=== PATIENT | male | born 1990 | race Caucasian/White ===

== ENCOUNTER 2017-07-07 17:12 | Inpatient (IN) ==
[2017-07-07] MEDS ORDERED: Isovue-370 500 ML INFUS..BTL IV ONE (17:26)
--- NOTE | 2017-07-07 17:29 | Emergency Department Note ---
Disposition Clinical Impression: Neuropraxia of right upper extremity, Retropharyngeal abscess, Myositis Disposition: Admitted As Inpatient Condition: Fair General Adult HPI - General Chief complaint: ED Neuro Symptoms/Deficit Stated complaint: neck pain into R arm Time Seen by Provider: 07/07/17 17:20 Source: family - History of Present Illness Pain Scale: 7 - Related Data Home Medications Medication Instructions Recorded Confirmed No Known Home Drugs 01/12/17 01/12/17 Allergies Allergy/AdvReac Type Severity Reaction Status Date / Time No Known Allergies Allergy Verified 08/01/16 10:45 Past Medical History - Past Medical History Medical history: Reports: no medical history Surgical history: Reports: no surgical history Psychiatric history: Reports: no psych history - Social History Smoking Status: Never smoker Smokeless Tobacco Status: No Alcohol use: Reports: occasionally, recent Drug use: Reports: cocaine, opiates, prescription drug abuse Physical Exam - General General appearance: alert Course Vital Signs Temperature 98.4 F 07/07/17 17:16 Pulse Rate 85 07/07/17 17:16 Respiratory Rate 16 07/07/17 17:16 Blood Pressure 145/94 07/07/17 17:16 O2 Sat by Pulse Oximetry 97 07/07/17 17:16 Temperature 98.8 F 07/08/17 04:22 Pulse Rate 67 07/08/17 04:22 Respiratory Rate 16 07/08/17 04:22 Blood Pressure 147/80 07/08/17 04:22 O2 Sat by Pulse Oximetry 98 07/08/17 04:22 Oxygen Delivery Oxygen Delivery Room Air Medical Decision Making - Lab Data Result diagrams: 07/08/17 01:48 07/08/17 01:48 Lab Results 07/07/17 07/07/17 07/07/17 Range/Units 17:35 17:35 17:35 WBC 11.4 H (4.3-11.1) K/mcL RBC 4.91 (4.19-5.50) M/mcL Hgb 15.1 (12.9-16.9) g/dL Hct 44.5 (37.5-50.1) % MCV 90.6 (83.0-100.0) fL MCH 30.8 (28.0-33.3) pg MCHC 33.9 (31.6-35.5) g/dL RDW 12.1 (11.5-14.5) % Plt Count 215 (140-400) K/mcL MPV 11.7 (9.4-12.4) fL Immature Gran % 0.3 (0-4) % Seg Neutrophils % 67.5 % Lymphocytes % 20.5 % Monocytes % 11.5 % Eosinophils % 0.0 % Basophils % 0.2 % Neutrophils # 7.7 (1.6-8.9) K/mcL Lymphocytes # 2.3 (0.6-4.6) K/mcL Monocytes # 1.3 (0.0-1.3) K/mcL Eosinophils # 0.0 (0.0-0.6) K/mcL Basophils # 0.0 (0.0-0.2) K/mcL ESR 11 H (0-10) mm/hr Sodium 138 (136-145) mEq/L Potassium 4.7 (3.5-5.1) mEq/L Chloride 100 (98-107) mEq/L Carbon Dioxide 30 H (23-29) mEq/L BUN 24 H (6-20) mg/dL Creatinine 1.08 (0.70-1.30) mg/dL Est GFR ( Amer) > 60 (> 60) Est GFR (Non-Af Amer) > 60 (> 60) BUN/Creatinine Ratio 22 (6-26) Glucose 102 (70-105) mg/dL Calculated Osmolality 290 (280-300) Lactic Acid (0.5-2.2) mmol/L Calcium 9.4 (8.6-10.3) mg/dL Magnesium 2.2 (1.6-2.6) mg/dL Total Bilirubin 0.7 (0.3-1.0) mg/dL AST 537 H (13-39) Units/L ALT 356 H (7-52) Units/L Alkaline Phosphatase 44 (34-104) Units/L Creatine Kinase > 78596 H (30-223) Units/L C-Reactive Protein 22 H (Less than 10) mg/L Serum Total Protein 7.7 (6.4-8.9) g/dL Albumin 4.8 (3.5-5.7) g/dL Globulin 2.9 (2.4-3.5) g/dL Albumin/Globulin Ratio 1.7 (1.1-2.2) Vitamin B12 (250-1100) pg/mL Folate (3.0-16.0) ng/mL HIV Ag/Ab Combo Qual (Nonreactive) 07/07/17 07/07/17 07/07/17 Range/Units 17:35 17:35 19:45 WBC (4.3-11.1) K/mcL RBC (4.19-5.50) M/mcL Hgb (12.9-16.9) g/dL Hct (37.5-50.1) % MCV (83.0-100.0) fL MCH (28.0-33.3) pg MCHC (31.6-35.5) g/dL RDW (11.5-14.5) % Plt Count (140-400) K/mcL MPV (9.4-12.4) fL Immature Gran % (0-4) % Seg Neutrophils % % Lymphocytes % % Monocytes % % Eosinophils % % Basophils % % Neutrophils # (1.6-8.9) K/mcL Lymphocytes # (0.6-4.6) K/mcL Monocytes # (0.0-1.3) K/mcL Eosinophils # (0.0-0.6) K/mcL Basophils # (0.0-0.2) K/mcL ESR (0-10) mm/hr Sodium (136-145) mEq/L Potassium (3.5-5.1) mEq/L Chloride (98-107) mEq/L Carbon Dioxide (23-29) mEq/L BUN (6-20) mg/dL Creatinine (0.70-1.30) mg/dL Est GFR ( Amer) (> 60) Est GFR (Non-Af Amer) (> 60) BUN/Creatinine Ratio (6-26) Glucose (70-105) mg/dL Calculated Osmolality (280-300) Lactic Acid 2.1 (0.5-2.2) mmol/L Calcium (8.6-10.3) mg/dL Magnesium (1.6-2.6) mg/dL Total Bilirubin (0.3-1.0) mg/dL AST (13-39) Units/L ALT (7-52) Units/L Alkaline Phosphatase (34-104) Units/L Creatine Kinase (30-223) Units/L C-Reactive Protein (Less than 10) mg/L Serum Total Protein (6.4-8.9) g/dL Albumin (3.5-5.7) g/dL Globulin (2.4-3.5) g/dL Albumin/Globulin Ratio (1.1-2.2) Vitamin B12 533 (250-1100) pg/mL Folate 14.5 (3.0-16.0) ng/mL HIV Ag/Ab Combo Qual Nonreactive (Nonreactive) Attestation Statement - Attestation Attestation: I examined this patient and my medical decision-making was reviewed with the Resident Physician. I agree with the documented findings, disposition and treatment plan as described except to the extent set forth below. [id number] time provided Patient arrives in the care of his mother. He complains of right upper extremity numbness and weakness that he noticed at approximately 7 AM upon awakening. Symptoms have been present for 10+ hours. He admits to drinking alcohol last night and going to bed around midnight without symptoms. His mother also noticed some erythema and swelling to his left posterior cervical region. On exam the patient does have identifiable weakness involving his right arm. He has well demarcated erythema to his left paracervical region with palpable induration. No crepitus. CT scan of the head and cervical spine ordered. IV contrast-enhanced CT of the soft tissue neck ordered. Etiology is not completely certain although I favor neuropraxia secondary to abnormal sleeping position 18:41: Care to be endorsed to the oncoming physician at [address] scans and reevaluation. She will provide disposition
--- NOTE | 2017-07-07 17:34 | Emergency Department Note ---
Disposition Clinical Impression: Neuropraxia of right upper extremity Disposition: Still a Patient Condition: Fair Referrals: Morteza Mello MD [Primary Care Provider] - Forms: ED Satisfaction Letter General Adult HPI - General Chief complaint: ED Neuro Symptoms/Deficit Stated complaint: neck pain into R arm Time Seen by Provider: 07/07/17 17:20 Source: family Nursing Notes Reviewed: Yes Vital Signs Reviewed: Yes - History of Present Illness HPI Narrative: Mr. Stokes presents with mother bedside for evaluation of left-sided neck pain and right upper extremity weakness. He was fine last night and, after drinking 8-9 alcoholic drinks (mixed ratio of beer and hard liquor), he woke this morning between 7:30 and 8 AM with his symptoms. He describes left-sided posterior neck pain and swelling as well as right upper extremity weakness and numbness over the nape of his right neck, shoulder, and upper arm. He initially thought he may have slept funny however, his symptoms persisted and his mom became concerned about the swelling of his left posterior neck. PMH: None Habits: History of IV drug abuse. Last injection was just over 1 year ago; ejected into his bilateral forearms. ROS: Positive: As above Negative: Trauma, fever, chills, headache, changes in vision. No history of congenital cardiac abnormalities. No slurring of speech or drooping of face. No lower extremity problems. No history of easy bruising or bleeding. No dyspnea or cough. No pain with swallowing of difficulty opening his mouth or chewing. Pain Scale: 7 - Related Data Home Medications Medication Instructions Recorded Confirmed No Known Home Drugs 01/12/17 01/12/17 Allergies Allergy/AdvReac Type Severity Reaction Status Date / Time No Known Allergies Allergy Verified 08/01/16 10:45 All systems ED: reviewed and negative except as stated. Review of Systems: As Per HPI Past Medical History - Past Medical History Medical history: Reports: no medical history Surgical history: Reports: no surgical history Psychiatric history: Reports: no psych history - Social History Smoking Status: Never smoker Smokeless Tobacco Status: No Alcohol use: Reports: occasionally, recent Drug use: Reports: cocaine, opiates, prescription drug abuse Physical Exam Vital Signs Reviewed General: Patient is alert, oriented, and in no acute distress. Head: atraumatic, normocephalic Eye: normal appearance, PERRL, EOMI, no scleral icterus, no conjunctival injection ENT: mucous membranes moist, normal external ear exam Neck: normal inspection, trachea midline, full ROM Chest: normal inspection, symmetric chest rise Respiratory: Good respiratory effort. Bilateral breath sounds are clear without wheezing, crackles, or rhonchi. Cardiovascular: Regular rate and rhythm. No clicks, rubs, gallops, or murmors. Normal heart sounds. Abdomen: Bowel sounds present normoactive x-4 quadrants. Abdomen is soft, nondistended, and nontender. No guarding or rebound. No organomegaly noted. Musculoskeletal: Spontaneously moving all extremities. 2/5 strength in right shoulder abduction and flexion. 4/5 strength in right elbow flexion. 5/5 strength in right shoulder adduction and extension, right elbow extension, right wrist flexion/extension/radial & ulnar deviation, and right hand facsimile operator strength. Left UE strength 5/5 throughout. Skin: warm, dry, intact. Neuro: Alert and oriented x4. Sensation light touch and pain absent circumferentially around the right mid humerus to axillae extending over right deltoid, shoulder, nape of right neck, and extending in the distribution of the lesser occipotal nerve including the right ear. No facial asymmetry. Cranial nerves II through XII intact. No slurring of speech. Limb drift of the right upper extremity. The limb drift of bilateral lower extremity's. Ataxia in right hand finger to nose. No gait ataxia. Psych: Patient's affect is appropriate for situation. - General General appearance: alert Course Course Narrative: We will. Muscular age-appropriate individual has obvious weakness of his right upper extremity with paresthesias. Suspect his right upper extremity limb drift and finger to nose ataxia secondary to muscle weakness. Patient was not able to substantially overcome this weakness with upper. He was intoxicated last night but denies any trauma. Clinically suspect neuropraxia. Spinal epidural abscess is a possibility though slightly given his last IV drug use was just over 1 year ago. Bedside ultrasound of the erythematous swollen localized area on the nape of his left neck did not show cobblestoning or drainable fluid. Patient is signed out to the night team, Dr. Bangura and Dr. Borges. CT imaging is pending. Anticipate disposition: Pending unremarkable CT, Discharge home with neurology follow-up. Vital Signs Temperature 98.4 F 07/07/17 17:16 Pulse Rate 85 07/07/17 17:16 Respiratory Rate 16 07/07/17 17:16 Blood Pressure 145/94 07/07/17 17:16 O2 Sat by Pulse Oximetry 97 07/07/17 17:16 Temperature 98.4 F 07/07/17 17:16 Pulse Rate 78 07/07/17 18:46 Respiratory Rate 16 07/07/17 18:46 Blood Pressure 131/84 07/07/17 18:46 O2 Sat by Pulse Oximetry 94 07/07/17 18:46 Oxygen Delivery Oxygen Delivery Room Air
[2017-07-07 19:23] LABS: Basophils % 0.2 %; Hematocrit 44.5 % (37.5-50.1); Hemoglobin 15.1 g/dL (12.9-16.9); Immature Granulocytes % 0.3 % (0-4); Lymphocytes # 2.3 K/mcL (0.6-4.6); Lymphocytes % 20.5 %; Mean Corpuscular HGB Conc 33.9 g/dL (31.6-35.5); Mean Corpuscular Hemoglobin 30.8 pg (28.0-33.3); Mean Corpuscular Volume 90.6 fL (83.0-100.0); Mean Platelet Volume 11.7 fL (9.4-12.4); Monocytes # 1.3 K/mcL (0.0-1.3); Monocytes % 11.5 %; Neutrophils # 7.7 K/mcL (1.6-8.9); Platelet Count 215 K/mcL (140-400); Red Blood Count 4.91 M/mcL (4.19-5.50); Red Cell Distribution Width 12.1 % (11.5-14.5); Segmented Neutrophils % 67.5 %
--- NOTE | 2017-07-07 19:27 | Emergency Department Note ---
Disposition Clinical Impression: Retropharyngeal abscess Neuropraxia of right upper extremity Qualifiers: Encounter type: initial encounter Qualified Code(s): S44.91XA - Injury of unspecified nerve at shoulder and upper arm level, right arm, initial encounter Myositis Qualifiers: Myositis type: unspecified type Myositis location: upper extremity Laterality: unspecified laterality Qualified Code(s): M60.829 - Other myositis, unspecified upper arm Disposition: Admitted As Inpatient Condition: Fair Time of Disposition: 23:00 Neuro HPI - General Chief Complaint: ED Neuro Symptoms/Deficit Stated Complaint: neck pain into R arm Time Seen by Provider: 07/07/17 17:20 Source: family Nursing Notes Reviewed: Yes Vital Signs Reviewed: Yes - Related Data Home Medications: Home Medications Medication Instructions Recorded Confirmed No Known Home Drugs 01/12/17 01/12/17 Allergies/Adverse Reactions: Allergies Allergy/AdvReac Type Severity Reaction Status Date / Time No Known Allergies Allergy Verified 08/01/16 10:45 Past Medical History - Past Medical History Medical history: Reports: no medical history Surgical history: Reports: no surgical history Psychiatric history: Reports: no psych history - Social History Smoking Status: Never smoker Smokeless Tobacco Status: No Alcohol use: Reports: occasionally, recent Drug use: Reports: cocaine, opiates, prescription drug abuse Physical Exam - General General appearance: alert Course Course Narrative: Assumed care from day shift Dr. Ruiz. Please see his documentation. Briefly , this is a 27-year-old male who resents to [facility] ED with chief complaint of right-sided arm weakness, numbness over the right upper arm that extends into the neck and face. He appears somewhat drowsy and does awaken to verbal stimulation. States he just does not feel good. Does admit to heavy alcohol use tonight before and does not remember anything about what happened. States he left the bar by himself and woke up this morning with the symptoms. He has on physical exam some decreased sensation over the distribution of the deltoid region that extends up into the neck. Initially denied any drug use but then states he thinks he may have started some heroin. CT of the head, cervical spine, soft tissue neck was ordered. We will follow up on results. - Reevaluation(s) Reevaluation #1: CT scan results show a developing abscess in the trapezius muscle causing a myositis. We will go ahead and get an MRI with and without contrast. We will start septic workup with lab work, blood cultures, we will give a IV fluid bolus and cover with IV vancomycin. Time: 19:37 Reevaluation #2: MRI showed "Severe myositis involving left trapezius and left-sided posterior paraspinal musculature from suboccipital area through C6-7 without drainable fluid collection identified. No epidural abscess. No evidence of osteomyelitis. There is a trace retropharyngeal abscess extending from C2 through C4-5, 6.0 cm craniocaudal by 5 mm in thickness." I discussed these findings with the hospitalist Dr. Roger who would like us to discuss with ENT. I spoke with ENT Dr. Bedoya who recommends clindamycin in addition to vancomycin. Also recommends Decadron 10 mg every 8 hours. First dose of this was ordered here. He does not feel this needs to be emergently drained. He will see the patient in consultation tomorrow. I discussed with hospitalist again who has accepted patient for admission. Time: 23:00 Vital Signs Temperature 98.4 F 07/07/17 17:16 Pulse Rate 85 07/07/17 17:16 Respiratory Rate 16 07/07/17 17:16 Blood Pressure 145/94 07/07/17 17:16 O2 Sat by Pulse Oximetry 97 07/07/17 17:16 Temperature 98.9 F 07/08/17 01:01 Pulse Rate 71 07/08/17 01:01 Respiratory Rate 15 07/08/17 01:01 Blood Pressure 147/88 07/08/17 01:01 O2 Sat by Pulse Oximetry 95 07/08/17 01:01 Oxygen Delivery Oxygen Delivery Room Air Neuro Symptoms/Deficit - Medical Records Medical records reviewed: Yes I reviewed the patient's medical records. - Lab Data Lab results reviewed: Yes I reviewed the patient's lab results. Result diagrams: 07/08/17 01:48 07/08/17 01:48 Lab Results 07/07/17 07/07/17 07/07/17 Range/Units 17:35 17:35 17:35 WBC 11.4 H (4.3-11.1) K/mcL RBC 4.91 (4.19-5.50) M/mcL Hgb 15.1 (12.9-16.9) g/dL Hct 44.5 (37.5-50.1) % MCV 90.6 (83.0-100.0) fL MCH 30.8 (28.0-33.3) pg MCHC 33.9 (31.6-35.5) g/dL RDW 12.1 (11.5-14.5) % Plt Count 215 (140-400) K/mcL MPV 11.7 (9.4-12.4) fL Immature Gran % 0.3 (0-4) % Seg Neutrophils % 67.5 % Lymphocytes % 20.5 % Monocytes % 11.5 % Eosinophils % 0.0 % Basophils % 0.2 % Neutrophils # 7.7 (1.6-8.9) K/mcL Lymphocytes # 2.3 (0.6-4.6) K/mcL Monocytes # 1.3 (0.0-1.3) K/mcL Eosinophils # 0.0 (0.0-0.6) K/mcL Basophils # 0.0 (0.0-0.2) K/mcL ESR 11 H (0-10) mm/hr Sodium 138 (136-145) mEq/L Potassium 4.7 (3.5-5.1) mEq/L Chloride 100 (98-107) mEq/L Carbon Dioxide 30 H (23-29) mEq/L BUN 24 H (6-20) mg/dL Creatinine 1.08 (0.70-1.30) mg/dL Est GFR ( Amer) > 60 (> 60) Est GFR (Non-Af Amer) > 60 (> 60) BUN/Creatinine Ratio 22 (6-26) Glucose 102 (70-105) mg/dL Calculated Osmolality 290 (280-300) Lactic Acid (0.5-2.2) mmol/L Calcium 9.4 (8.6-10.3) mg/dL Magnesium 2.2 (1.6-2.6) mg/dL Total Bilirubin 0.7 (0.3-1.0) mg/dL AST 537 H (13-39) Units/L ALT 356 H (7-52) Units/L Alkaline Phosphatase 44 (34-104) Units/L Creatine Kinase > 22827 H (30-223) Units/L C-Reactive Protein 22 H (Less than 10) mg/L Serum Total Protein 7.7 (6.4-8.9) g/dL Albumin 4.8 (3.5-5.7) g/dL Globulin 2.9 (2.4-3.5) g/dL Albumin/Globulin Ratio 1.7 (1.1-2.2) Vitamin B12 (250-1100) pg/mL Folate (3.0-16.0) ng/mL HIV Ag/Ab Combo Qual (Nonreactive) 07/07/17 07/07/17 07/07/17 Range/Units 17:35 17:35 19:45 WBC (4.3-11.1) K/mcL RBC (4.19-5.50) M/mcL Hgb (12.9-16.9) g/dL Hct (37.5-50.1) % MCV (83.0-100.0) fL MCH (28.0-33.3) pg MCHC (31.6-35.5) g/dL RDW (11.5-14.5) % Plt Count (140-400) K/mcL MPV (9.4-12.4) fL Immature Gran % (0-4) % Seg Neutrophils % % Lymphocytes % % Monocytes % % Eosinophils % % Basophils % % Neutrophils # (1.6-8.9) K/mcL Lymphocytes # (0.6-4.6) K/mcL Monocytes # (0.0-1.3) K/mcL Eosinophils # (0.0-0.6) K/mcL Basophils # (0.0-0.2) K/mcL ESR (0-10) mm/hr Sodium (136-145) mEq/L Potassium (3.5-5.1) mEq/L Chloride (98-107) mEq/L Carbon Dioxide (23-29) mEq/L BUN (6-20) mg/dL Creatinine (0.70-1.30) mg/dL Est GFR ( Amer) (> 60) Est GFR (Non-Af Amer) (> 60) BUN/Creatinine Ratio (6-26) Glucose (70-105) mg/dL Calculated Osmolality (280-300) Lactic Acid 2.1 (0.5-2.2) mmol/L Calcium (8.6-10.3) mg/dL Magnesium (1.6-2.6) mg/dL Total Bilirubin (0.3-1.0) mg/dL AST (13-39) Units/L ALT (7-52) Units/L Alkaline Phosphatase (34-104) Units/L Creatine Kinase (30-223) Units/L C-Reactive Protein (Less than 10) mg/L Serum Total Protein (6.4-8.9) g/dL Albumin (3.5-5.7) g/dL Globulin (2.4-3.5) g/dL Albumin/Globulin Ratio (1.1-2.2) Vitamin B12 533 (250-1100) pg/mL Folate 14.5 (3.0-16.0) ng/mL HIV Ag/Ab Combo Qual Nonreactive (Nonreactive) - Radiology Data Radiology results reviewed: Yes I reviewed the patient's radiology results. Cervical Spine CT 07/07/17 17:26 IMPRESSION: No acute abnormality of the cervical spine. D/ / Fransico Aguirre MD / Fransico Aguirre MD Interpreting Provider: Fransico Aguirre MD Head CT 07/07/17 17:26 IMPRESSION: No acute intracranial abnormality. D/ / King Barrientos MD / King Barrientos MD Interpreting Provider: King Barrientos MD Soft Tissue Neck CT 07/07/17 17:26 IMPRESSION: Posterior neck myositis with possible developing intramuscular abscess. D/ / Lloyd aBltazar MD / Lloyd Baltazar MD Interpreting Provider: Lloyd Baltazar MD Cervical Spine CT 07/07/17 17:26 IMPRESSION: No acute abnormality of the cervical spine. D/ / Fransico Aguirre MD / Fransico Aguirre MD Interpreting Provider: Fransico Aguirre MD Head CT 07/07/17 17:26 IMPRESSION: No acute intracranial abnormality. D/ / King Barrientos MD / King Barrientos MD Interpreting Provider: King Barrientos MD Soft Tissue Neck CT 07/07/17 17:26 IMPRESSION: Posterior neck myositis with possible developing intramuscular abscess. D/ / Lloyd Baltazar MD / Lloyd Baltazar MD Interpreting Provider: Lloyd Baltazar MD Chest X-Ray 07/07/17 19:22 IMPRESSION: 1. Elevation of the right hemidiaphragm with right lower lobe atelectasis. No identifiable cause. 2. Mild enlargement of the cardiac silhouette which may be due to intrinsic enlargement of the heart or pericardial fluid. D/ / Osmel Infante MD / Osmel Infante MD Interpreting Provider: Osmel Infante MD Cervical Spine MRI 07/07/17 19:28 IMPRESSION: Severe myositis involving left trapezius and left-sided posterior paraspinal musculature from suboccipital area through C6-7 without drainable fluid collection identified. No epidural abscess. No evidence of osteomyelitis. There is a trace retropharyngeal abscess extending from C2 through C4-5, 6.0 cm craniocaudal by 5 mm in thickness. D/ / John Kirkland MD / John Kirkland MD Interpreting Provider: John Kirkland MD Checklist - LKW: 3-4.5 hrs Add. Warnings/Precautions Patient/family understanding: The patient/family members have been counseled and understood the risk, benefit , and alternatives of treatment.
[2017-07-07] MEDS ORDERED: 0.9 % Sodium Chloride 1,000 ML IVC ONE (19:30)
--- NOTE | 2017-07-07 19:37 | Emergency Department Note ---
Disposition Clinical Impression: Neuropraxia of right upper extremity Disposition: Still a Patient Condition: Fair General Adult HPI - General Chief complaint: ED Neuro Symptoms/Deficit Stated complaint: neck pain into R arm Time Seen by Provider: 07/07/17 17:20 Source: family - History of Present Illness Pain Scale: 7 - Related Data Home Medications Medication Instructions Recorded Confirmed No Known Home Drugs 01/12/17 01/12/17 Allergies Allergy/AdvReac Type Severity Reaction Status Date / Time No Known Allergies Allergy Verified 08/01/16 10:45 Past Medical History - Past Medical History Medical history: Reports: no medical history Surgical history: Reports: no surgical history Psychiatric history: Reports: no psych history - Social History Smoking Status: Never smoker Smokeless Tobacco Status: No Alcohol use: Reports: occasionally, recent Drug use: Reports: cocaine, opiates, prescription drug abuse Physical Exam - General General appearance: alert Course Vital Signs Temperature 98.4 F 07/07/17 17:16 Pulse Rate 85 07/07/17 17:16 Respiratory Rate 16 07/07/17 17:16 Blood Pressure 145/94 07/07/17 17:16 O2 Sat by Pulse Oximetry 97 07/07/17 17:16 Temperature 98.3 F 07/07/17 20:52 Pulse Rate 78 07/07/17 23:20 Respiratory Rate 16 07/08/17 00:07 Blood Pressure 135/76 07/08/17 00:07 O2 Sat by Pulse Oximetry 98 07/07/17 23:20 Oxygen Delivery Oxygen Delivery Room Air Medical Decision Making - Lab Data Result diagrams: 07/07/17 17:35 07/07/17 17:35 Lab Results 07/07/17 07/07/17 07/07/17 Range/Units 17:35 17:35 17:35 WBC 11.4 H (4.3-11.1) K/mcL RBC 4.91 (4.19-5.50) M/mcL Hgb 15.1 (12.9-16.9) g/dL Hct 44.5 (37.5-50.1) % MCV 90.6 (83.0-100.0) fL MCH 30.8 (28.0-33.3) pg MCHC 33.9 (31.6-35.5) g/dL RDW 12.1 (11.5-14.5) % Plt Count 215 (140-400) K/mcL MPV 11.7 (9.4-12.4) fL Immature Gran % 0.3 (0-4) % Seg Neutrophils % 67.5 % Lymphocytes % 20.5 % Monocytes % 11.5 % Eosinophils % 0.0 % Basophils % 0.2 % Neutrophils # 7.7 (1.6-8.9) K/mcL Lymphocytes # 2.3 (0.6-4.6) K/mcL Monocytes # 1.3 (0.0-1.3) K/mcL Eosinophils # 0.0 (0.0-0.6) K/mcL Basophils # 0.0 (0.0-0.2) K/mcL ESR 11 H (0-10) mm/hr Sodium 138 (136-145) mEq/L Potassium 4.7 (3.5-5.1) mEq/L Chloride 100 (98-107) mEq/L Carbon Dioxide 30 H (23-29) mEq/L BUN 24 H (6-20) mg/dL Creatinine 1.08 (0.70-1.30) mg/dL Est GFR ( Amer) > 60 (> 60) Est GFR (Non-Af Amer) > 60 (> 60) BUN/Creatinine Ratio 22 (6-26) Glucose 102 (70-105) mg/dL Calculated Osmolality 290 (280-300) Lactic Acid (0.5-2.2) mmol/L Calcium 9.4 (8.6-10.3) mg/dL Total Bilirubin 0.7 (0.3-1.0) mg/dL AST 537 H (13-39) Units/L ALT 356 H (7-52) Units/L Alkaline Phosphatase 44 (34-104) Units/L Creatine Kinase > 66883 H (30-223) Units/L C-Reactive Protein 22 H (Less than 10) mg/L Serum Total Protein 7.7 (6.4-8.9) g/dL Albumin 4.8 (3.5-5.7) g/dL Globulin 2.9 (2.4-3.5) g/dL Albumin/Globulin Ratio 1.7 (1.1-2.2) Vitamin B12 (250-1100) pg/mL Folate (3.0-16.0) ng/mL 07/07/17 07/07/17 Range/Units 17:35 19:45 WBC (4.3-11.1) K/mcL RBC (4.19-5.50) M/mcL Hgb (12.9-16.9) g/dL Hct (37.5-50.1) % MCV (83.0-100.0) fL MCH (28.0-33.3) pg MCHC (31.6-35.5) g/dL RDW (11.5-14.5) % Plt Count (140-400) K/mcL MPV (9.4-12.4) fL Immature Gran % (0-4) % Seg Neutrophils % % Lymphocytes % % Monocytes % % Eosinophils % % Basophils % % Neutrophils # (1.6-8.9) K/mcL Lymphocytes # (0.6-4.6) K/mcL Monocytes # (0.0-1.3) K/mcL Eosinophils # (0.0-0.6) K/mcL Basophils # (0.0-0.2) K/mcL ESR (0-10) mm/hr Sodium (136-145) mEq/L Potassium (3.5-5.1) mEq/L Chloride (98-107) mEq/L Carbon Dioxide (23-29) mEq/L BUN (6-20) mg/dL Creatinine (0.70-1.30) mg/dL Est GFR ( Amer) (> 60) Est GFR (Non-Af Amer) (> 60) BUN/Creatinine Ratio (6-26) Glucose (70-105) mg/dL Calculated Osmolality (280-300) Lactic Acid 2.1 (0.5-2.2) mmol/L Calcium (8.6-10.3) mg/dL Total Bilirubin (0.3-1.0) mg/dL AST (13-39) Units/L ALT (7-52) Units/L Alkaline Phosphatase (34-104) Units/L Creatine Kinase (30-223) Units/L C-Reactive Protein (Less than 10) mg/L Serum Total Protein (6.4-8.9) g/dL Albumin (3.5-5.7) g/dL Globulin (2.4-3.5) g/dL Albumin/Globulin Ratio (1.1-2.2) Vitamin B12 533 (250-1100) pg/mL Folate 14.5 (3.0-16.0) ng/mL Critical Care Time Critical Care Time: Yes Total Critical Care Time: 35 Attestation: Critical care performed: Time is exclusive of separately billable procedures. Time includes: direct patient care, patient reassessment, coordination of patient care, interpretation of data (laboratory data, radiology data, and respiratory data), review of patient's medical records, medical consultation and documentation of patient care. Procedures included in critical care time: Procedures excluded from critical care time: Attestation Statement - Attestation Attestation: I examined this patient and my medical decision-making was reviewed with the Resident Physician. I agree with the documented findings, disposition and treatment plan as described except to the extent set forth below. Patient signed out pending CT scans. Patient's CT scan shows myositis developing abscess in his trapezius. Concern with the weakness in the right arm that this could have extension to his spinal cord. We will check an MRI. Starting septic workup. IV antibiotics. At this point the patient's disposition is admission versus transfer. Patient with no definite abscess on MRI. He does have a small retropharyngeal abscess. Discussing with ENT at this time. Antibiotics ordered. Admitted to the hospitalist. Cervical Spine CT 07/07/17 17:26 IMPRESSION: No acute abnormality of the cervical spine. D/ / Fransico Aguirre MD / Fransico Aguirre MD Interpreting Provider: Fransico Aguirre MD Head CT 07/07/17 17:26 IMPRESSION: No acute intracranial abnormality. D/ / King Barrientos MD / King Barrientos MD Interpreting Provider: King Barrientos MD Soft Tissue Neck CT 07/07/17 17:26 IMPRESSION: Posterior neck myositis with possible developing intramuscular abscess. D/ / Lloyd Baltazar MD / Lloyd Baltazar MD Interpreting Provider: Lloyd Baltazar MD Chest X-Ray 07/07/17 19:22 IMPRESSION: 1. Elevation of the right hemidiaphragm with right lower lobe atelectasis. No identifiable cause. 2. Mild enlargement of the cardiac silhouette which may be due to intrinsic enlargement of the heart or pericardial fluid. D/ / Osmel Infante MD / Osmel Infante MD Interpreting Provider: Osmel Infante MD Cervical Spine MRI 07/07/17 19:28 IMPRESSION: Severe myositis involving left trapezius and left-sided posterior paraspinal musculature from suboccipital area through C6-7 without drainable fluid collection identified. No epidural abscess. No evidence of osteomyelitis. There is a trace retropharyngeal abscess extending from C2 through C4-5, 6.0 cm craniocaudal by 5 mm in thickness. D/ / John Kirkland MD / John Kirkland MD Interpreting Provider: John Kirkland MD
[2017-07-07 19:43] LABS: Alanine Aminotransferase 356 Units/L (7-52); Albumin 4.8 g/dL (3.5-5.7); Albumin/Globulin Ratio 1.7 (1.1-2.2); Alkaline Phosphatase 44 Units/L (34-104); Aspartate Amino Transferase 537 Units/L (13-39); BUN/Creatinine Ratio 22 (6-26); Bilirubin,Total 0.7 mg/dL (0.3-1.0); Blood Urea Nitrogen 24 mg/dL (6-20); C-Reactive Protein 22 mg/L (Less than 10); Calcium 9.4 mg/dL (8.6-10.3); Carbon Dioxide 30 mEq/L (23-29); Chloride 100 mEq/L (98-107); Globulin 2.9 g/dL (2.4-3.5); Glucose 102 mg/dL (70-105); Osmolality,Calculated 290 (280-300); Potassium 4.7 mEq/L (3.5-5.1); Sodium 138 mEq/L (136-145); Total Protein 7.7 g/dL (6.4-8.9); eGFR For African Americans > 60 (> 60); eGFR For Non-African Americans > 60 (> 60)
[2017-07-07] MEDS ORDERED: Dexamethasone 10 MG/ML VIAL IVP SCH (23:15)
[2017-07-07] MEDS ORDERED: Ketorolac 15 MG/ML VIAL IVP ONE (23:22)
[2017-07-07] MEDS ORDERED: Clindamycin 900 MG/50 ML 900 MG/50 ML IV.SOLN IVPB ONE (23:24)
[2017-07-07] MEDS ORDERED: Naloxone 0.4 MG/ML INJ IVP PRN (23:43)
--- NOTE | 2017-07-07 23:44 | Internal Med History&Physical ---
Date of Encounter: 07/08/17 Time of Encounter: 23:44 Internal Medicine - H&P: HPI Chief complaint: Weakness Admitted From: Emergency Dept Plans for Post Hospital Care: Home History of present illness: Mr. Stokes is a 27 year old male history of heroin abuse and alcohol abuse wound clinic for years but has been sober for about 5 months or so up until yesterday when he drank heavily at night. He was actually in his normal state of health yesterday up until this morning when he woke up and felt that his right upper extremity and a combination of his right face and left occipital head were numb. He also reported weakness in the right upper extremities. He denies any fever. He denies any dysarthria or blurry vision. He has a mild frontal headache. No nausea or vomiting and denies chest pain, shortness of breath, abdominal pain, urinary symptoms. He says he's snorts heroin about 3 times a week. Because of those symptoms he presented to the ED where he was hemodynamically stable. Laboratory workup showed mild leukocytosis at 11.4. AST was 537 and ALT was 356. ESR was 11 and CRP was 22. He had a CT head which was unremarkable. CT cervical spine was with no acute findings. A CTA of the neck showed posterior neck myositis with a developing intramuscular abscess. The abscess measured at 4.4 x 2.3 x 11.4. Cousin those findings the ED was worried about spinal involvement and a cervical spine MRI was done which again showed severe myositis of the left trapezius and left sided posterior paraspinal musculature with no with no fluid collection noted at this time. There was no epidural abscess that there was a trace retropharyngeal abscess extending from C2-C4-5 that was 6 cm craniocaudally by 5 mm in thickness. Past Med Surg Social Fam HX - Past Medical History Medical history: no medical history Psychiatric history: no psych history - Past Surgical History Surgical History: no surgical history - Social History Smoking Status: Never smoker Smokeless Tobacco Status: No Alcohol use: occasionally, recent Drug use: cocaine, opiates, prescription drug abuse Internal Medicine - H&P: Meds No Known Home Drugs 01/12/17 [History] 3 Allergy/AdvReac Type Severity Reaction Status Date / Time No Known Allergies Allergy Verified 08/01/16 10:45 All Systems PM: A 10-system review of systems was performed and is negative for pertinent findings except as documented above in the HPI. Review of systems: All systems reviewed are negative except for as mentioned above - Constitutional Vitals: Temp Pulse Resp BP Pulse Ox 98.3 F 78 18 136/75 98 07/07/17 20:52 07/07/17 23:20 07/07/17 23:20 07/07/17 23:20 07/07/17 23:20 Exam: GEN: NAD HEENT: AT, NC, No cyanosis, oral mucosa is moist, No JVD Lymphatics: No lymphadenoapthy Eyes: Extrocular muscles intact, anicteric CVS:RRR. S1, S2, No m/r/g RESP: CTAB ABD: Soft, NT, ND, +BS EXT: No edema, No rashes, 2+ DP NEURO: Nonfocal, CN II-XII intact, the patient's strength is about 4out of 5 in the right upper extremities and 5 out of 5 in all extremities. Decreased sensation to my light touch on the right neck, right deltoid and right arm. Psych: Cooperative, Not anxious or depressed Internal Med - H&P Results - Labs CBC & Chem 7: 07/07/17 17:35 07/07/17 17:35 - Assessment and plan (1) Retropharyngeal abscess Current Visit: Yes Status: Acute Assessment and plan: ENT consulted in ED and recommended IV decadron. Will start clindamycin and vanco. f/u on cultures. NPO. IVF. Monitor respiratory status. Currently stable. (2) Myositis Current Visit: Yes Status: Acute Assessment and plan: This is associated with decreased sensation on the right neck and into the right deltoid and right arm. He strength is about 4/5 in the right upper extremities. Possibly alcoholic myositits but doesnt completely explain the paresthesia as that has a wide range of differentials. ESR and CRP only minimally elevated. Will check CPK, B12, Folate, HIV, RPR levels. Will c/w neurology. PT/OT. Qualifiers: Myositis type: unspecified type Myositis location: upper extremity Laterality: unspecified laterality Qualified Code(s): M60.829 - Other myositis , unspecified upper arm (3) Alcohol abuse Current Visit: Yes Status: Acute Assessment and plan: Will place on CIWA. Banana bag. social consult (4) DVT prophylaxis Current Visit: Yes Status: Acute Assessment and plan: heparin SQ - Time Spent With Patient Total time spent is greater than 50% in coordination of care (as documented) at patient's floor/unit and/or counseling patient:
[2017-07-07] MEDS ORDERED: 0.9 % Sodium Chloride 1,000 ML IVC SCH (23:45)
[2017-07-07] MEDS ORDERED: *HR* LORazepam 2 MG/ML VIAL IVP PRN ×2 (23:45)
[2017-07-08 00:18] LABS: Creatine Kinase > 20000 Units/L (30-223)
[2017-07-08 00:32] LABS: Folate 14.5 ng/mL (3.0-16.0)
[2017-07-08] MEDS: Clindamycin 600 MG/50 ML 600 MG/50 ML IV.SOLN IVPB SCH ×3 (00:47→15:52)
[2017-07-08 00:58] LABS: Magnesium 2.2 mg/dL (1.6-2.6)
[2017-07-08] MEDS: Dexamethasone 10 MG/ML VIAL IVP SCH ×3 (01:06→16:24)
[2017-07-08] MEDS: Acetaminophen 325 MG TABLET PO PRN ×3 (01:13→20:26)
[2017-07-08 02:16] LABS: Basophils % 0.3 %; Eosinophils % 0.1 %; Hematocrit 43.3 % (37.5-50.1); Hemoglobin 14.8 g/dL (12.9-16.9); Immature Granulocytes % 0.1 % (0-4); Lymphocytes # 1.8 K/mcL (0.6-4.6); Mean Corpuscular HGB Conc 34.2 g/dL (31.6-35.5); Mean Corpuscular Volume 90.6 fL (83.0-100.0); Mean Platelet Volume 11.2 fL (9.4-12.4); Monocytes # 0.9 K/mcL (0.0-1.3); Monocytes % 8.4 %; Neutrophils # 8.3 K/mcL (1.6-8.9); Platelet Count 189 K/mcL (140-400); Red Blood Count 4.78 M/mcL (4.19-5.50); Red Cell Distribution Width 11.9 % (11.5-14.5); Segmented Neutrophils % 75.1 %
[2017-07-08 02:30] LABS: BUN/Creatinine Ratio 21 (6-26); Blood Urea Nitrogen 20 mg/dL (6-20); Calcium 9.1 mg/dL (8.6-10.3); Carbon Dioxide 28 mEq/L (23-29); Chloride 101 mEq/L (98-107); Glucose 114 mg/dL (70-105); Magnesium 2.2 mg/dL (1.6-2.6); Osmolality,Calculated 283 (280-300); Potassium 4.1 mEq/L (3.5-5.1); Sodium 135 mEq/L (136-145); eGFR For African Americans > 60 (> 60); eGFR For Non-African Americans > 60 (> 60)
[2017-07-08] MEDS: *HR* Heparin 5,000 UNIT/ML VIAL SQ SCH ×3 (05:58→21:52)
[2017-07-08 07:22] LABS: Alanine Aminotransferase 306 Units/L (7-52); Albumin 4.4 g/dL (3.5-5.7); Albumin/Globulin Ratio 1.7 (1.1-2.2); Alkaline Phosphatase 41 Units/L (34-104); Aspartate Amino Transferase 450 Units/L (13-39); Bilirubin,Direct 0.2 mg/dL (0.0-0.2); Bilirubin,Indirect 0.7 mg/dL (0.0-1.2); Bilirubin,Total 0.9 mg/dL (0.3-1.0); Globulin 2.6 g/dL (2.4-3.5)
[2017-07-08] MEDS ORDERED: 0.9 % Sodium Chloride 1,000 ML IVC ONE (07:42)
[2017-07-08] MEDS: 0.9 % Sodium Chloride 1,000 ML IVC SCH ×4 (09:22→20:18)
--- NOTE | 2017-07-08 09:22 | ENT - Consult Note ---
Date of Encounter: 07/08/17 Time of Encounter: 08:20 Assessment and Plan (1) Retropharyngeal abscess Current Visit: Yes Status: Acute No evidence of retropharyngeal abscess on physical examination, review of CT scan questionable area of retropharyngeal abscess. This may be an early abscess but nothing drainable. See no evidence for that. This may be area of inflammation from snorting of heroin would cover for possible early retropharyngeal abscess as you are doing with the IV vancomycin and clindamycin. Would recommend continuation 24 hours of this as well as the Decadron repeat CT scan tomorrow and if no progression then may convert to oral Augmentin. Would also apply mupirocin ointment 3 times a day to the left nape of neck abrasion/spider bite? Please reconsult if see evidence of increasing retropharyngeal abscess. Again no noted abscess drainable at this time. I will not be available if reconsult it but there will be another ENT coverage (2) Myositis Current Visit: Yes Status: Acute Patient with history of falling with use of heroin suspect contusions to the neck muscle recommend local ice intermittently for 72 hours and prednisone or Decadron 3-5 day taper may also be associated with possible spider bite and the and back therapy should cover this would watch for any progression such as subcutaneous emphysema/fasciitis/abscess. Reconsult as needed Qualifiers: Myositis type: unspecified type Myositis location: upper extremity Laterality: unspecified laterality Qualified Code(s): M60.829 - Other myositis , unspecified upper arm History of Present Illness Consult date: 07/08/17 Reason for ENT Consult: other (Questionable retropharyngeal abscess, myositis) History of present illness: 27-year-old male who has history of drug abuse and alcohol abuse who was admitted through the ER last evening with history of having been drinking alcohol and snorting heroin the evening prior, and loss consciousness and memory woke up in his bed at home with sore shoulders right and left and neck extending up to the base of skull. No fever. Denies recent IV drug abuse but has used in the past on several occasions. States that he has been trying to remain sober since January but apparently has not been totally successful. CT scan last evening read as possible early retropharyngeal abscess not drainable and cervical myositis. Patient also found to have red blotch left nape of neck inferior aspect of trapezius. No crepitus and no abscess seen on CT scan of this area. CT scan was personally reviewed today shows a phlegmon/cellulitis type picture and myositis picture left nape of neck area below the trapezius but no fluid collection. I do not appreciate a true retropharyngeal abscess although that may be an early 1. Patient denies sore throat difficulty swallowing or fevers. Past Med Surg Social Fam HX - Past Medical History Medical history: no medical history Psychiatric history: no psych history - Past Surgical History Surgical History: no surgical history - Social History Smoking Status: Never smoker Smokeless Tobacco Status: No Alcohol use: occasionally, recent Drug use: cocaine, opiates, prescription drug abuse - Family History Father Living Status: Still Living Hx Family Cardiac Disorders: Yes (HTN) Medications and Allergies No Known Home Drugs 01/12/17 [History] 3 Allergy/AdvReac Type Severity Reaction Status Date / Time No Known Allergies Allergy Verified 08/01/16 10:45 ENT Exam Initial Vital Signs Temp Pulse Resp BP Pulse Ox 98.4 F 85 16 145/94 97 07/07/17 17:16 07/07/17 17:16 07/07/17 17:16 07/07/17 17:16 07/07/17 17:16 - General physical appearance well developed, well nourished, no distress, no pain. negative: moderate distress, severe distress, moderate pain, severe pain, cachectic, obese - Eyes PERRL, normal ocular movement, icteric - ENT normal pinna, normal nares, normal mucosa, no hearing loss, no congestion, CN 2- 12 grossly intact, Other (His HEENT examination reveals normocephalic atraumatic head there is a 1 mm questionable scratch versus bites with surrounding cellulitis left nape of neck posterior to the trapezius inferior aspect measuring 4 x 3 cm no fluctuance no crepitus palpated. No fluctuance of palpation of the entire neck or floor of mouth. His nasal cavities normal oral cavity normal teeth normal tongue normal pharynx normal no fullness to the pharynx no evidence of retropharyngeal abscesses seen or palpated with bimanual palpation through the floor of mouth and oral cavity oropharynx area.). negative: decreased hearing, deviated nasal septum, nasal discharge, poor mcc, dentures, mucosal exudate, dry mucosa - Neck no masses, trachea midline, no lymphadectomy. negative: deviated trachea, diffuse goiter, limited ROM - Respiratory normal respiratory effort, clear to percussion, clear to auscultation - Abdomen Abdomen: soft, non tender, bowel sounds, no tender, no surgical scars - Integumentary no rash, no growths, no abnormal pigmentation - Neurologic CN 2-12 grossly intact, normal coordination, normal sensation - Musculoskeletal normal gait, normal posture - Psychiatric oriented to time, oriented to person, oriented to place, speech is normal, memory intact Exam Initial Vital Signs Temp Pulse Resp BP Pulse Ox 98.4 F 85 16 145/94 97 07/07/17 17:16 07/07/17 17:16 07/07/17 17:16 07/07/17 17:16 07/07/17 17:16 Results - Labs 07/08/17 01:48 07/08/17 01:48 Abnormal lab results ESR 11 mm/hr (0-10) H 07/07/17 17:35 Sodium 135 mEq/L (136-145) L 07/08/17 01:48 Glucose 114 mg/dL (70-105) H 07/08/17 01:48 AST 450 Units/L (13-39) H 07/08/17 01:48 ALT 306 Units/L (7-52) H 07/08/17 01:48 Creatine Kinase > 20039 Units/L (30-223) H 07/07/17 17:35 C-Reactive Protein 22 mg/L (Less than 10) H 07/07/17 17:35 Diabetes panel 07/08/17 Range/Units 01:48 Sodium 135 L (136-145) mEq/L Potassium 4.1 (3.5-5.1) mEq/L Chloride 101 (98-107) mEq/L Carbon Dioxide 28 (23-29) mEq/L BUN 20 (6-20) mg/dL Creatinine 0.94 (0.70-1.30) mg/dL Glucose 114 H (70-105) mg/dL Calcium 9.1 (8.6-10.3) mg/dL AST 450 H (13-39) Units/L ALT 306 H (7-52) Units/L Alkaline Phosphatase 41 (34-104) Units/L Albumin 4.4 (3.5-5.7) g/dL Calcium panel 07/08/17 Range/Units 01:48 Calcium 9.1 (8.6-10.3) mg/dL Albumin 4.4 (3.5-5.7) g/dL Pituitary panel 07/08/17 Range/Units 01:48 Sodium 135 L (136-145) mEq/L Potassium 4.1 (3.5-5.1) mEq/L Chloride 101 (98-107) mEq/L Carbon Dioxide 28 (23-29) mEq/L BUN 20 (6-20) mg/dL Creatinine 0.94 (0.70-1.30) mg/dL Glucose 114 H (70-105) mg/dL Calcium 9.1 (8.6-10.3) mg/dL Adrenal panel 07/08/17 Range/Units 01:48 Sodium 135 L (136-145) mEq/L Potassium 4.1 (3.5-5.1) mEq/L Chloride 101 (98-107) mEq/L Carbon Dioxide 28 (23-29) mEq/L BUN 20 (6-20) mg/dL Creatinine 0.94 (0.70-1.30) mg/dL Glucose 114 H (70-105) mg/dL Calcium 9.1 (8.6-10.3) mg/dL Total Bilirubin 0.9 (0.3-1.0) mg/dL AST 450 H (13-39) Units/L ALT 306 H (7-52) Units/L Alkaline Phosphatase 41 (34-104) Units/L Albumin 4.4 (3.5-5.7) g/dL All other labs normal. Consult Discharge Plan - Plan Referrals: NONE,PCP [Primary Care Provider] -
--- NOTE | 2017-07-08 10:55 | Internal Med Progress Note ---
<Rohit Dhaliwal - Last Filed: 07/08/17 10:53> Date of Encounter: 07/08/17 Time of Encounter: 08:10 - Assessment and plan (1) Retropharyngeal abscess Current Visit: Yes Status: Suspected Assessment and plan: -ENT consulted in ED and recommended IV decadron. - Per ENT, no plans for immediate intervention. Patient is having to dysphagia, odynophagia, difficulty breathing. - May be more likely irritation from snorting heroin, inflammatory response. - Recommeds continuing Abx with transition to oral augmentin if no worsening overnight. - Repeat CT scan tomorrow to assess for growth. Plan - Continue clindamycin and vanco day #2 - f/u on cultures. -NPO. IVF. Monitor respiratory status. Currently stable. (2) Myositis Current Visit: Yes Status: Acute Assessment and plan: - This is associated with decreased sensation on the right neck and into the right deltoid and right arm. - Strength intact today but decreased ROM on exam - Possibly alcoholic myositits but doesnt completely explain the paresthesia as that has a wide range of differentials. May also be related to trauma during intoxicated state, infectious. - CK >20,000. AST/ALT elevated in 3-500s. - HIV negative. - ESR and CRP only minimally elevated. - Consulted neurology. PT/OT. Plan - Aggressive fluids. Additional 1L bolus today and then 250 mL/hour - Monitor renal function - Continue supportive care. Pain well controlled at this time. Qualifiers: Myositis type: unspecified type Myositis location: shoulder Laterality: left Qualified Code(s): M60.812 - Other myositis, left shoulder (3) Alcohol abuse Current Visit: Yes Status: Acute Assessment and plan: - No symptoms of withdrawl at this time. - Continue CIWA. Banana bag. social consult (4) Transaminitis Current Visit: Yes Status: Acute Assessment and plan: - AST of 306, ALT 450 this AM which is mildly improved. - Hepatitis panel pending - HIV negative. - May be secondary to infection, muscle breakdown, alcoholic Plan - Continue supportive care - Follow up on labs. (5) DVT prophylaxis Current Visit: Yes Status: Acute Assessment and plan: heparin SQ (6) IV drug abuse Current Visit: Yes Status: Chronic Assessment and plan: Reported heroin use 2 days ago Supportive treatment, monitor for signs of withdrawl - Time Spent With Patient Total time spent is greater than 50% in coordination of care (as documented) at patient's floor/unit and/or counseling patient: 25 - 35 minutes - Subjective Interval history: Patient seen and examined at bedside this morning. He states that overall he is feeling well with only minor soreness of his shoulders, chest. States it is an aching pain which does not radiate. Has having no difficulty swallowing, breathing. Denies any symptoms of fevers, chills, nausea, vomiting. States last IVDU was heroin 2 days ago. States he is no longer a heavy drinker, last drink was last weekend and he drinks around 7 drinks when he does drink, which is about once a week. - Constitutional Vitals: Temp Pulse Resp BP Pulse Ox 97.7 F 67 16 165/82 95 07/08/17 08:22 07/08/17 04:22 07/08/17 08:22 07/08/17 08:22 07/08/17 08:22 Exam: Gen.: Vitals noted. No acute distress. AAOx3 HEENT: PERRL/EOMI, oropharynx clear, Normocephalic, atraumatic, MMM. No visible abscess, erythema, tonsillar deviation. Neck: Supple. No adenopathy. Limited ROM in extension, right rotation. Tender to palpation on trapezius. Cardiac: RRR, no murmur, +S1/S2 Pulmonary: CTA bilaterally, no wheezes, rales or rhonchi, equal chest expansion Abdomen: soft, nontender, BS noted, no guarding Skin: Area of raised erythema on left neck, non draining, small punctuate lesion. MSK: ROM as above. Muscle strength intact. Extremities: no BLE edema, nontender calf, no cyanosis or clubbing Neuro: A&Ox3, moves all extremities, no focal deficits Psych: Appropriate mood and behavior Internal Medicine: Result - Labs CBC & Chem 7: 07/08/17 01:48 07/08/17 01:48 Labs: Short CBC 07/08/17 Range/Units 01:48 WBC 11.0 (4.3-11.1) K/mcL Hgb 14.8 (12.9-16.9) g/dL Hct 43.3 (37.5-50.1) % Plt Count 189 (140-400) K/mcL Neutrophils # 8.3 (1.6-8.9) K/mcL BMP 07/08/17 01:48 Sodium 135 L Potassium 4.1 Chloride 101 Carbon Dioxide 28 BUN 20 Creatinine 0.94 Glucose 114 H Calcium 9.1 Liver Function 07/08/17 Range/Units 01:48 Total Bilirubin 0.9 (0.3-1.0) mg/dL Direct Bilirubin 0.2 (0.0-0.2) mg/dL AST 450 H (13-39) Units/L ALT 306 H (7-52) Units/L Alkaline Phosphatase 41 (34-104) Units/L Albumin 4.4 (3.5-5.7) g/dL Consult Discharge Plan - Plan Referrals: NONE,PCP [Primary Care Provider] - <Jr Malik - Last Filed: 07/08/17 15:16> Date of Encounter: 07/08/17 - Assessment and plan (1) Myositis Current Visit: Yes Status: Acute Qualifiers: Myositis type: other type Myositis location: shoulder Laterality: left Qualified Code(s): M60.812 - Other myositis, left shoulder (2) Alcohol abuse Current Visit: Yes Status: Acute (3) Retropharyngeal abscess Current Visit: Yes Status: Suspected (4) IV drug abuse Current Visit: Yes Status: Chronic (5) Transaminitis Current Visit: Yes Status: Acute (6) DVT prophylaxis Current Visit: Yes Status: Acute - Time Spent With Patient Total time spent is greater than 50% in coordination of care (as documented) at patient's floor/unit and/or counseling patient: - Constitutional Vitals: Temp Pulse Resp BP Pulse Ox 97.9 F 62 15 155/79 98 07/08/17 11:15 07/08/17 11:15 07/08/17 11:15 07/08/17 11:15 07/08/17 11:15 Internal Medicine: Result - Labs CBC & Chem 7: 07/08/17 01:48 07/08/17 01:48 Labs: Short CBC 07/08/17 Range/Units 01:48 WBC 11.0 (4.3-11.1) K/mcL Hgb 14.8 (12.9-16.9) g/dL Hct 43.3 (37.5-50.1) % Plt Count 189 (140-400) K/mcL Neutrophils # 8.3 (1.6-8.9) K/mcL BMP 07/08/17 01:48 Sodium 135 L Potassium 4.1 Chloride 101 Carbon Dioxide 28 BUN 20 Creatinine 0.94 Glucose 114 H Calcium 9.1 Liver Function 07/08/17 Range/Units 01:48 Total Bilirubin 0.9 (0.3-1.0) mg/dL Direct Bilirubin 0.2 (0.0-0.2) mg/dL AST 450 H (13-39) Units/L ALT 306 H (7-52) Units/L Alkaline Phosphatase 41 (34-104) Units/L Albumin 4.4 (3.5-5.7) g/dL Urine 07/08/17 Range/Units 10:38 Urine Color Yellow (Yellow) Urine Clarity Clear (Clear) Urine pH 7.0 (5.0-8.0) pH Units Ur Specific [place] 1.017 (1.010-1.025) Urine Protein Negative (Neg-Trace) mg/dL Urine Glucose (UA) Normal (Normal) mg/dL - Attending Attestation I examined this patient and my medical decision-making was reviewed with the Resident Physician on 07/08/17. I agree with the documented findings, disposition and treatment plan as described except to the extent set forth below. Mr Stokes is currently admitted with acute myositis and possible retropharyngeal abscess. He remains high risk at this time. Mr Stokes is having a lot of pain in his neck. No fever. No GI issues. No nausea. Exam alert. Moderate distress. Mucus membranes dry Heart reg No wheeze Area of erythema on L posterior neck Significant muscle spasm upper back and neck. I/P 1. Myositis - pt at high risk with CPK greater than 20K. Aggressive fluids, bicarb if needed. Follow renal function. Muscle relaxant and pain control. 2. Possible abscess - appreciate ENT Further diagnoses and plan as above.
[2017-07-08 11:50] LABS: Bilirubin,Urine Negative (Negative); Blood,Urine Negative (Negative); Clarity,Urine Clear (Clear); Color,Urine Yellow (Yellow); Glucose,Urine (UA) Normal (Normal); Ketones,Urine Negative (Negative); Leukocyte Esterase,Urine Negative (Negative); Nitrite,Urine Negative (Negative); Protein,Urine Negative (Neg-Trace); Specific Gravity,Urine 1.017 (1.010-1.025); Urobilinogen,Urine Normal (Normal)
[2017-07-08] MEDS ORDERED: Orphenadrine 60 MG/2 ML VIAL IVP PRN (14:30)
[2017-07-08] MEDS ORDERED: *HR* OxyCODONE Immed Rel 5 MG TABLET PO PRN (14:51)
[2017-07-08] MEDS ORDERED: diazePAM 10 MG/2 ML SYRINGE IVP PRN (14:53)
--- NOTE | 2017-07-08 15:18 | Neurology - Consult Note ---
Date of Encounter: 07/08/17 Time of Encounter: 13:16 Assessment and Plan (1) Brachial plexitis Current Visit: Yes Status: Acute Concerning this patient's symptoms so that predominantly he is having these paresthesias along with this severe myositis in the trapezius and neck paraspinal muscles which is likely related to this overall conditions and retropharyngeal abscess, Suspect that unusual findings could be related to his a snorting on the heroine. He is already been evaluated by ENT and is been on antibiotics as well as steroids. Though myositis can cause weakness and inflammation and pain but as far as sensory deficit are concern it could be related to underlying involvement of the upper brachial plexus. His weakness is not as prominent at this time. Already had a CT and MRI of the cervical spine I would also suggest getting an MRI of the brachial plexus as well. In the meantime continue on steroids and antibiotics. For brachial plexus injury treatment is usually supportive and conservative with steroids as well as physical therapy and rehabilitation. It may take several months for complete resolution providing that his myositis and other underlying conditions improve. He would probably need EMG nerve conduction studies later on as an outpatient for exact localization of the nerve damage. For numbness and paresthesias we may try symptomatic treatment with gabapentin or pregabalin as well (2) Myositis Current Visit: Yes Status: Acute Qualifiers: Myositis type: unspecified type Myositis location: shoulder Laterality: left Qualified Code(s): M60.812 - Other myositis, left shoulder (3) Retropharyngeal abscess Current Visit: Yes Status: Suspected History of Present Illness HPI: Mr. Stokes is a 27 year old male with history of heroin abuse (SNORTING) and alcohol abuse admitted with retropharyngeal abscess as well as severe myositis of the trapezius and cervical paraspinal muscles. Patient is also complaining of paresthesias in his neck lower part of the face as well as upper right extremity with mild weakness. According to the patient a day before the admission he was drinking heavily and at the same time he has is noted heroine when he woke up in the morning he felt numbness and paresthesias and weakness of his right upper extremity. He denies any fever. He denies any dysarthria or blurry vision. He has a mild frontal headache. No nausea or vomiting and denies chest pain, shortness of breath, abdominal pain, urinary symptoms. He says he's snorts heroin about 3 times a week. Because of those symptoms he presented to the ED where he was hemodynamically stable. Laboratory workup showed mild leukocytosis at 11.4. AST was 537 and ALT was 356. ESR was 11 and CRP was 22. He had a CT head which was unremarkable. CT cervical spine was with no acute findings. A CTA of the neck showed posterior neck myositis with a developing intramuscular abscess. The abscess measured at 4.4 x 2.3 x 11.4. MRI of C spine: showed severe myositis of the left trapezius and left sided posterior paraspinal musculature with no with no fluid collection no epidural abscess with retropharyngeal abscess extending from C2-C4-5 that was 6 cm craniocaudally by 5 mm in thickness. Patient denies any significant difficulty with swallowing any double vision or any difficulty with his speech Past Med Surg Social Fam HX - Past Medical History Medical history: no medical history Psychiatric history: no psych history - Past Surgical History Surgical History: no surgical history - Social History Smoking Status: Never smoker Smokeless Tobacco Status: No Alcohol use: occasionally, recent Drug use: cocaine, opiates, prescription drug abuse - Family History Father Living Status: Still Living Hx Family Cardiac Disorders: Yes (HTN) Medications and Allergies No Known Home Drugs 01/12/17 [History] 3 Allergy/AdvReac Type Severity Reaction Status Date / Time No Known Allergies Allergy Verified 08/01/16 10:45 All Systems: The remainder of the systems were reviewed and are negative Physical Examination - Vital Signs Vital Signs: Initial Vital Signs Temp Pulse Resp BP Pulse Ox 98.4 F 85 16 145/94 97 07/07/17 17:16 07/07/17 17:16 07/07/17 17:16 07/07/17 17:16 07/07/17 17:16 - Exam Exam: GENERAL: Comfortable in no acute distress HEENT: Normal LUNGS: CTA HEART: RRR, S1 S2 Audible, no murmur EXTREMITIES: No Pedal edema. DETAILED NEUROLOGICAL EXAMINATION: MENTAL STATUS: Oriented to person, place, date and situation. Memory: knows the President, Aware of recent events Recent Memory Intact Attention concentration all intact Cranial Nerve Examination: CN - II: Visual Acuity, Field of Vision Normal, Fundus examination: No disk edema, Pupils- size shape reaction to light and accommodation: All normal. CN III, IV, : External ocular movements were intact, Pupils were reactive, Nodrooping of the eyelids CN V: Sensation over the face to light touch and pinprick all normal. Corneal reflexes not tested, jaw jerk normal. CN VII: No facial asymmetry, no flattening of nasolabial folds, no difficulty in closing the eyes, no loss of forehead wrinkles, no difficulty in eye-closure, frowning raising eyebrows. CNVIII: No significant hearing loss CN IX, X: Uvula centralized not deviated, Gag reflex: Not tested CN X1: Sternocleidomastoid, trapezius, normal or evidence of any weakness. CN X11: No Dysarthria, no wasting or fibrilation f tongue muscles, no deviation, tongue muscle strength normal. Motor examination: No hypertrophy, tone was normal, power grade 0-5 Upper limbs Proximal- mild difficulty in lifting the arms above the head. 4/4 shoulder AB/ AD on right, left 5/5 Distal- No weakness in distal muscles Lower limbs On formal testing 5/5 all over Coordination: [id number] slow on riht Target pursuit normal finger tapping normal, Rapid alternating moment of wrist normal Sensory system: Superficial sensations- Touch normal. Pain- Pinprick, decrease in right upper extremity predominantly in the shoulder area up to the elbow front of the chest above the C3 line, and the part of the neck on the right as compared to the left facial sensations are intact Deep sensation normal, Joint position sense normal. Cortical sensation, Tactile discrimination, localization and extinction all normal. Deep tendon reflexes. Decrease in the right upper extremity at bicep and brachioradialis No evidence of Babinski. No sign of meningeal irritation Gait Examination: Deferred - Constitutional General appearance: comfortable Results - Laboratory Findings CBC and BMP: 07/08/17 01:48 07/08/17 01:48 Abnormal lab findings: Abnormal lab results ESR 11 mm/hr (0-10) H 07/07/17 17:35 Sodium 135 mEq/L (136-145) L 07/08/17 01:48 Glucose 114 mg/dL (70-105) H 07/08/17 01:48 AST 450 Units/L (13-39) H 07/08/17 01:48 ALT 306 Units/L (7-52) H 07/08/17 01:48 Creatine Kinase > 72809 Units/L (30-223) H 07/07/17 17:35 C-Reactive Protein 22 mg/L (Less than 10) H 07/07/17 17:35 - Diagnostic Findings Additional findings: MRI of the neck shows Severe myositis involving left trapezius and left-sided posterior paraspinal musculature from suboccipital area through C6-7 without drainable fluid collection identified. No epidural abscess. No evidence of osteomyelitis. There is a trace retropharyngeal abscess extending from C2 through C4-5, 6.0 cm craniocaudal by 5 mm in thickness. Consult Discharge Plan - Plan Referrals: NONE,PCP [Primary Care Provider] -
--- NOTE | 2017-07-08 15:22 | Event Note ---
Date of Encounter: 07/08/17 Time of Encounter: 15:16 I spoke to patient again regarding events prior to coming in. He has no memory of what happened but does not think he was outside on ground. He does not think he had a prolonged down time. He has significant muscle spasm but no abdominal pain. He does have some autonomic dysfunction with diaphoresis on his back only last night and now with his BP elevating (this may be due to alcohol withdrawal). He has an area on his back that could be consistent with a bite. I spoke to poison control/toxicology about the potential this could be a black spider bite. He has the muscle spasm, autonomic issues, pain and possible bite area. I was informed it is reasonable to include this in differential but at this time he does not need antivenom. She suggested aggressive pain control with muscle relaxants, benzos and narcotics as well as monitoring for worsening issues and autonomic problems (i.e. fluctuating BP, priapism, etc). If he worsens he will need the antivenom (which we do not have here). Poison control number: General Practitioner (quality control assistant yin): [phone] He will need tetanus shot if not had in 5 years.
[2017-07-08] MEDS ORDERED: Tdap (Boostrix) Vaccine 0.5 ML SYRINGE IM ONE (15:23)
[2017-07-08] MEDS: *HR* OxyCODONE Immed Rel 5 MG TABLET PO PRN ×2 (16:11→20:26)
[2017-07-08] MEDS: Orphenadrine 60 MG/2 ML VIAL IVP SCH (16:24)
[2017-07-08] MEDS: Thiamine (B-1) 100 MG, Folic Acid 1 MG, MVI, adult with vitamin K 10 ML in 0.9 % Sodi... IVPB SCH (18:01)
[2017-07-09] MEDS: Dexamethasone 10 MG/ML VIAL IVP SCH ×3 (00:36→16:36)
[2017-07-09] MEDS: Clindamycin 600 MG/50 ML 600 MG/50 ML IV.SOLN IVPB SCH ×3 (00:38→16:34)
[2017-07-09] MEDS: 0.9 % Sodium Chloride 1,000 ML IVC SCH ×6 (02:40→18:33)
[2017-07-09] MEDS: *HR* OxyCODONE Immed Rel 5 MG TABLET PO PRN ×4 (02:41→22:32)
[2017-07-09] MEDS: Acetaminophen 325 MG TABLET PO PRN ×2 (02:41→13:51)
[2017-07-09 02:43] LABS: Hepatitis A Antibody IgM Nonreactive (Nonreactive); Hepatitis B Core IgM Nonreactive (Nonreactive); Hepatitis B Surface Antigen Nonreactive (Nonreactive); Hepatitis C Virus Antibody Nonreactive (Nonreactive)
[2017-07-09 03:13] LABS: BUN/Creatinine Ratio 20 (6-26); Basophils % 0.1 %; Blood Urea Nitrogen 15 mg/dL (6-20); Calcium 9.1 mg/dL (8.6-10.3); Carbon Dioxide 26 mEq/L (23-29); Chloride 107 mEq/L (98-107); Glucose 131 mg/dL (70-105); Hematocrit 38.5 % (37.5-50.1); Hemoglobin 13.2 g/dL (12.9-16.9); Immature Granulocytes % 0.7 % (0-4); Immature Platelets 8.2 % (1.1-6.1); Lymphocytes % 7.8 %; Mean Corpuscular HGB Conc 34.3 g/dL (31.6-35.5); Mean Corpuscular Hemoglobin 30.8 pg (28.0-33.3); Mean Corpuscular Volume 89.7 fL (83.0-100.0); Mean Platelet Volume 11.8 fL (9.4-12.4); Monocytes # 0.8 K/mcL (0.0-1.3); Monocytes % 6.9 %; Neutrophils # 10.3 K/mcL (1.6-8.9); Osmolality,Calculated 289 (280-300); Platelet Count 175 K/mcL (140-400); Potassium 4.2 mEq/L (3.5-5.1); Red Blood Count 4.29 M/mcL (4.19-5.50); Segmented Neutrophils % 84.5 %; Sodium 138 mEq/L (136-145); eGFR For African Americans > 60 (> 60); eGFR For Non-African Americans > 60 (> 60)
[2017-07-09] MEDS: Orphenadrine 60 MG/2 ML VIAL IVP SCH ×2 (05:35→16:37)
[2017-07-09] MEDS: *HR* Heparin 5,000 UNIT/ML VIAL SQ SCH ×3 (05:36→22:23)
[2017-07-09] MEDS ORDERED: Aminoglycoside Consult 1 EACH MC ONE (12:57)
--- NOTE | 2017-07-09 13:04 | Neurology Progress Note ---
Date of Encounter: 07/09/17 Time of Encounter: 07:30 Assessment and Plan (1) Brachial plexitis Current Visit: Yes Status: Acute Overall clinically stable suggest continue in physical therapy and continue on steroids rates MRI of the brachial plexus further decision will depend on the result of MRI scan other treatment is as per ENT and primary team (2) Myositis Current Visit: Yes Status: Acute Qualifiers: Myositis type: unspecified type Myositis location: shoulder Laterality: left Qualified Code(s): M60.812 - Other myositis, left shoulder (3) Retropharyngeal abscess Current Visit: Yes Status: Suspected Subjective Interval history: Are all patient is a stable awaits MRI of the plexus on antibiotics as well as steroids Objective - Constitutional Vitals: Temp Pulse Resp BP Pulse Ox 98.1 F 67 16 148/73 96 07/09/17 11:25 07/09/17 11:25 07/09/17 11:25 07/09/17 11:25 07/09/17 11:25 - Neurological Exam Motor Examination: Present: other (No changes compared to the) Results - Laboratory Findings CBC and BMP: 07/09/17 01:59 07/09/17 01:59 Abnormal lab findings: Abnormal lab results WBC 12.2 K/mcL (4.3-11.1) H 07/09/17 01:59 Neutrophils # 10.3 K/mcL (1.6-8.9) H 07/09/17 01:59 Immature Plt Fraction 8.2 % (1.1-6.1) H 07/09/17 01:59 ESR 11 mm/hr (0-10) H 07/07/17 17:35 Glucose 131 mg/dL (70-105) H 07/09/17 01:59 AST 450 Units/L (13-39) H 07/08/17 01:48 ALT 306 Units/L (7-52) H 07/08/17 01:48 Creatine Kinase 9751 Units/L (30-223) H 07/09/17 01:59 C-Reactive Protein 22 mg/L (Less than 10) H 07/07/17 17:35 Vancomycin Trough 4 mcg/mL (5-10) L 07/09/17 06:58 Consult Discharge Plan - Plan Referrals: NONE,PCP [Non-Partnered Physician] -
[2017-07-09 15:03] LABS: Albumin 4.1 g/dL (3.5-5.7); Albumin/Globulin Ratio 1.8 (1.1-2.2); Bilirubin,Direct 0.2 mg/dL (0.0-0.2); Bilirubin,Indirect 0.4 mg/dL (0.0-1.2); Bilirubin,Total 0.6 mg/dL (0.3-1.0); Globulin 2.3 g/dL (2.4-3.5); Total Protein 6.4 g/dL (6.4-8.9)
--- NOTE | 2017-07-09 15:40 | Internal Med Progress Note ---
Date of Encounter: 07/09/17 Time of Encounter: 15:30 - Assessment and plan (1) Myositis Current Visit: Yes Status: Acute Qualifiers: Myositis type: unspecified type Myositis location: shoulder Laterality: left Qualified Code(s): M60.812 - Other myositis, left shoulder (2) Alcohol abuse Current Visit: Yes Status: Acute (3) Retropharyngeal abscess Current Visit: Yes Status: Suspected (4) IV drug abuse Current Visit: Yes Status: Chronic (5) Transaminitis Current Visit: Yes Status: Acute (6) DVT prophylaxis Current Visit: Yes Status: Acute - Time Spent With Patient Total time spent is greater than 50% in coordination of care (as documented) at patient's floor/unit and/or counseling patient: - Constitutional Vitals: Temp Pulse Resp BP Pulse Ox 98.1 F 67 16 148/73 96 07/09/17 11:25 07/09/17 11:25 07/09/17 11:25 07/09/17 11:25 07/09/17 11:25 Internal Medicine: Result - Labs CBC & Chem 7: 07/09/17 01:59 07/09/17 01:59 Labs: Short CBC 07/09/17 Range/Units 01:59 WBC 12.2 H (4.3-11.1) K/mcL Hgb 13.2 D (12.9-16.9) g/dL Hct 38.5 (37.5-50.1) % Plt Count 175 (140-400) K/mcL Neutrophils # 10.3 H (1.6-8.9) K/mcL BMP 07/09/17 01:59 Sodium 138 Potassium 4.2 Chloride 107 Carbon Dioxide 26 BUN 15 Creatinine 0.74 Glucose 131 H Calcium 9.1 Liver Function 07/09/17 Range/Units 01:59 Total Bilirubin 0.6 (0.3-1.0) mg/dL Direct Bilirubin 0.2 (0.0-0.2) mg/dL AST 272 H (13-39) Units/L ALT 242 H (7-52) Units/L Alkaline Phosphatase 37 (34-104) Units/L Albumin 4.1 (3.5-5.7) g/dL Consult Discharge Plan - Plan Referrals: NONE,PCP [Non-Partnered Physician] -
--- NOTE | 2017-07-09 15:54 | Internal Med Progress Note ---
<Jose Guadalupe Oreilly - Last Filed: 07/09/17 15:47> Date of Encounter: 07/09/17 Time of Encounter: 15:47 - Assessment and plan (1) Retropharyngeal abscess Current Visit: Yes Status: Suspected Assessment and plan: patients neck swelling has improved with IV Decadron. He is able to move his neck without any pain. This is likely irritation from snorting heroin and inflammatory process. Unlikely to be an abscess. At this point we will continue monitor patient. We have discontinued vancomycin and continue clindamycin. Cultures are negative. We have decreased Decadron 4 mg IV every 6 (2) Myositis Current Visit: Yes Status: Acute Assessment and plan: Unclear etiology of patient's myositis. Patient's creatinine kinase has decreased to 9751 We will continue IV fluids. Renal function is stable. Patient able to move all extremities Qualifiers: Myositis type: unspecified type Myositis location: shoulder Laterality: left Qualified Code(s): M60.812 - Other myositis, left shoulder (3) Alcohol abuse Current Visit: Yes Status: Acute Assessment and plan: - No symptoms of withdrawl at this time. - Continue CIWA. Banana bag. consult to job analysis manager at patients request. (4) DVT prophylaxis Current Visit: Yes Status: Acute Assessment and plan: heparin SQ (5) Transaminitis Current Visit: Yes Status: Acute Assessment and plan: trending down currently suspecting 2nd to myositis and rhabdomyolysis continue to monitor. (6) IV drug abuse Current Visit: Yes Status: Chronic Assessment and plan: patient relapsed on heroin use. He snorts it not IV drug use Supportive treatment, monitor for signs of withdrawl - Time Spent With Patient Total time spent is greater than 50% in coordination of care (as documented) at patient's floor/unit and/or counseling patient: - Subjective Interval history: Patient reports neck pain and redness has improved considerably. He is able to move his neck. he still reports right shoulder numbness and right neck numbness. He reports no reason why he rebounded and used alcohol and heroin again. 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 He reports no abnormal sexual activity. He denies homosexual activity. He denies using drugs via IV route. - Constitutional Vitals: Temp Pulse Resp BP Pulse Ox 97.6 F 88 17 134/72 96 07/09/17 15:34 07/09/17 15:34 07/09/17 15:34 07/09/17 15:34 07/09/17 15:34 - Other Additional findings: General: without distress Neck: Mild erythema at the base of the left neck. Mild swelling. Heart: Regular rate and rhythm with no murmur Lungs: Clear to auscultation bilaterally Abdomen: Soft nontender, nondistended positive bowel sounds Skin: warm and dry Extremities: Absent pedal edema, Neuro: Decreased sensation to light touch in the right shoulder and right neck region. Vascular: Pedal and radial pulses 2 out of 4 Internal Medicine: Result - Labs CBC & Chem 7: 07/09/17 01:59 07/09/17 01:59 Labs: Short CBC 07/09/17 Range/Units 01:59 WBC 12.2 H (4.3-11.1) K/mcL Hgb 13.2 D (12.9-16.9) g/dL Hct 38.5 (37.5-50.1) % Plt Count 175 (140-400) K/mcL Neutrophils # 10.3 H (1.6-8.9) K/mcL BMP 07/09/17 01:59 Sodium 138 Potassium 4.2 Chloride 107 Carbon Dioxide 26 BUN 15 Creatinine 0.74 Glucose 131 H Calcium 9.1 Liver Function 07/09/17 Range/Units 01:59 Total Bilirubin 0.6 (0.3-1.0) mg/dL Direct Bilirubin 0.2 (0.0-0.2) mg/dL AST 272 H (13-39) Units/L ALT 242 H (7-52) Units/L Alkaline Phosphatase 37 (34-104) Units/L Albumin 4.1 (3.5-5.7) g/dL Consult Discharge Plan - Plan Referrals: NONE,PCP [Non-Partnered Physician] - <Jr Malik - Last Filed: 07/09/17 18:47> Date of Encounter: 07/09/17 - Assessment and plan (1) Myositis Current Visit: Yes Status: Acute Qualifiers: Myositis type: other type Myositis location: shoulder Laterality: left Qualified Code(s): M60.812 - Other myositis, left shoulder (2) Alcohol abuse Current Visit: Yes Status: Acute (3) Retropharyngeal abscess Current Visit: Yes Status: Suspected (4) IV drug abuse Current Visit: Yes Status: Chronic (5) Transaminitis Current Visit: Yes Status: Acute (6) DVT prophylaxis Current Visit: Yes Status: Acute - Time Spent With Patient Total time spent is greater than 50% in coordination of care (as documented) at patient's floor/unit and/or counseling patient: - Constitutional Vitals: Temp Pulse Resp BP Pulse Ox 97.6 F 88 17 134/72 96 07/09/17 15:34 07/09/17 15:34 07/09/17 15:34 07/09/17 15:34 07/09/17 15:34 Internal Medicine: Result - Labs CBC & Chem 7: 07/09/17 01:59 07/09/17 01:59 Labs: Short CBC 07/09/17 Range/Units 01:59 WBC 12.2 H (4.3-11.1) K/mcL Hgb 13.2 D (12.9-16.9) g/dL Hct 38.5 (37.5-50.1) % Plt Count 175 (140-400) K/mcL Neutrophils # 10.3 H (1.6-8.9) K/mcL BMP 07/09/17 01:59 Sodium 138 Potassium 4.2 Chloride 107 Carbon Dioxide 26 BUN 15 Creatinine 0.74 Glucose 131 H Calcium 9.1 Liver Function 07/09/17 Range/Units 01:59 Total Bilirubin 0.6 (0.3-1.0) mg/dL Direct Bilirubin 0.2 (0.0-0.2) mg/dL AST 272 H (13-39) Units/L ALT 242 H (7-52) Units/L Alkaline Phosphatase 37 (34-104) Units/L Albumin 4.1 (3.5-5.7) g/dL - Attending Attestation I examined this patient and my medical decision-making was reviewed with the Resident Physician on 07/09/17. I agree with the documented findings, disposition and treatment plan as described except to the extent set forth below. Mr Stokes is currently admitted for acute myositis. He remains moderate to high risk due to potential for worsening clinical status. Mr Stokes is moving somewhat better. Still having some pain. No fever. Muscle relaxants help. Exam alert Comfortable Mucus membranes dry Heart reg No wheeze Abd soft Less muscle swelling and increased movement. IP Myositis - ? spider bite 2. Polysubstance abuse hx Further diagnoses and plan as above.
[2017-07-09] MEDS: Thiamine (B-1) 100 MG, Folic Acid 1 MG, MVI, adult with vitamin K 10 ML in 0.9 % Sodi... IVPB SCH (17:49)
[2017-07-10] MEDS: Clindamycin 600 MG/50 ML 600 MG/50 ML IV.SOLN IVPB SCH ×3 (00:02→14:29)
[2017-07-10] MEDS: Dexamethasone 10 MG/ML VIAL IVP SCH ×3 (00:03→14:30)
[2017-07-10 02:26] LABS: Basophils % 0.1 %; Hematocrit 38.3 % (37.5-50.1); Hemoglobin 13.2 g/dL (12.9-16.9); Immature Granulocytes % 0.4 % (0-4); Lymphocytes # 1.2 K/mcL (0.6-4.6); Lymphocytes % 12.2 %; Mean Corpuscular HGB Conc 34.5 g/dL (31.6-35.5); Mean Corpuscular Volume 89.9 fL (83.0-100.0); Mean Platelet Volume 11.8 fL (9.4-12.4); Monocytes # 0.7 K/mcL (0.0-1.3); Monocytes % 6.6 %; Neutrophils # 8.1 K/mcL (1.6-8.9); Platelet Count 184 K/mcL (140-400); Red Blood Count 4.26 M/mcL (4.19-5.50); Red Cell Distribution Width 12.1 % (11.5-14.5); Segmented Neutrophils % 80.7 %
[2017-07-10] MEDS: 0.9 % Sodium Chloride 1,000 ML IVC SCH ×4 (02:32→12:56)
[2017-07-10 02:45] LABS: Alanine Aminotransferase 184 Units/L (7-52); Albumin 3.8 g/dL (3.5-5.7); Albumin/Globulin Ratio 1.8 (1.1-2.2); Alkaline Phosphatase 35 Units/L (34-104); Aspartate Amino Transferase 117 Units/L (13-39); BUN/Creatinine Ratio 22 (6-26); Bilirubin,Total 0.5 mg/dL (0.3-1.0); Blood Urea Nitrogen 19 mg/dL (6-20); Calcium 8.8 mg/dL (8.6-10.3); Carbon Dioxide 25 mEq/L (23-29); Chloride 109 mEq/L (98-107); Globulin 2.1 g/dL (2.4-3.5); Glucose 115 mg/dL (70-105); Osmolality,Calculated 291 (280-300); Potassium 4.1 mEq/L (3.5-5.1); Sodium 139 mEq/L (136-145); Total Protein 5.9 g/dL (6.4-8.9); eGFR For African Americans > 60 (> 60); eGFR For Non-African Americans > 60 (> 60)
[2017-07-10] MEDS: *HR* Heparin 5,000 UNIT/ML VIAL SQ SCH ×3 (06:17→22:03)
[2017-07-10] MEDS: Orphenadrine 60 MG/2 ML VIAL IVP SCH (06:17)
--- NOTE | 2017-07-10 09:39 | Neurology Progress Note ---
Date of Encounter: 07/10/17 Time of Encounter: 07:25 Assessment and Plan (1) Brachial plexitis Current Visit: Yes Status: Acute Overall clinically stable suggest continue in physical therapy and continue on steroids , awaits MRI of the brachial plexus further decision will depend on the result of MRI scan other treatment is as per ENT and primary team Continue on the steroids and may use gabapentin or Lidoderm patches for numbness and paresthesias in the brachial plexus area for symptomatic relief (2) Myositis Current Visit: Yes Status: Acute Qualifiers: Myositis type: other type Myositis location: shoulder Laterality: left Qualified Code(s): M60.812 - Other myositis, left shoulder (3) Retropharyngeal abscess Current Visit: Yes Status: Suspected Subjective Interval history: Patient seems to be stable strength is improving in the right upper extremity still complaining of numbness and paresthesias. He had an MRI of the right brachial plexus awaiting official report overall he is a stable l Objective - Constitutional Vitals: Temp Pulse Resp BP Pulse Ox 97.6 F 40 16 131/65 95 07/10/17 06:49 07/10/17 06:49 07/10/17 06:49 07/10/17 06:49 07/10/17 06:49 - Neurological Exam Motor Examination: Present: other (No changes compared to the) Results - Laboratory Findings CBC and BMP: 07/10/17 01:42 07/10/17 01:42 Abnormal lab findings: Abnormal lab results Immature Plt Fraction 8.2 % (1.1-6.1) H 07/09/17 01:59 ESR 11 mm/hr (0-10) H 07/07/17 17:35 Chloride 109 mEq/L (98-107) H 07/10/17 01:42 Glucose 115 mg/dL (70-105) H 07/10/17 01:42 AST 117 Units/L (13-39) H 07/10/17 01:42 ALT 184 Units/L (7-52) H 07/10/17 01:42 Creatine Kinase 3332 Units/L (30-223) H 07/10/17 01:42 C-Reactive Protein 22 mg/L (Less than 10) H 07/07/17 17:35 Serum Total Protein 5.9 g/dL (6.4-8.9) L 07/10/17 01:42 Globulin 2.1 g/dL (2.4-3.5) L 07/10/17 01:42 Vancomycin Trough 4 mcg/mL (5-10) L 07/09/17 06:58 Consult Discharge Plan - Plan Referrals: NONE,PCP [Non-Partnered Physician] -
[2017-07-10] MEDS: *HR* OxyCODONE Immed Rel 5 MG TABLET PO PRN ×2 (11:53→19:41)
--- NOTE | 2017-07-10 15:16 | Internal Med Progress Note ---
<Jose Guadalupe Oreilly - Last Filed: 07/10/17 15:13> Date of Encounter: 07/10/17 Time of Encounter: 15:13 - Assessment and plan (1) Myositis Current Visit: Yes Status: Acute Assessment and plan: Unclear etiology of patient's myositis. Patient's creatinine kinase continues to trend down. We will continue IV fluids. Decrease rate. Renal function is stable. Patient able to move all extremities Qualifiers: Myositis type: other type Myositis location: shoulder Laterality: left Qualified Code(s): M60.812 - Other myositis, left shoulder (2) Retropharyngeal abscess Current Visit: Yes Status: Suspected Assessment and plan: patients neck swelling has improved with IV Decadron. He is able to move his neck without any pain. This is likely irritation from snorting heroin and inflammatory process. Unlikely to be an abscess. awaiting chest mri results continue clindamycin. If chest MRI is negative for abscess we will discontinue clindamycin. We will decreased Decadron tomorrow to 4 mg by mouth twice a day. (3) Alcohol abuse Current Visit: Yes Status: Acute Assessment and plan: - No symptoms of withdrawl at this time. - Discontinue CIWA Complete consult to video manager at patients request. (4) DVT prophylaxis Current Visit: Yes Status: Acute Assessment and plan: heparin SQ (5) Transaminitis Current Visit: Yes Status: Acute Assessment and plan: LFT Continues to trending down currently suspecting 2nd to myositis and rhabdomyolysis continue to monitor. (6) IV drug abuse Current Visit: Yes Status: Chronic Assessment and plan: patient relapsed on heroin use. He snorts it not IV drug use Supportive treatment, monitor for signs of withdrawl (7) Brachial plexitis Current Visit: Yes Status: Acute Assessment and plan: Awaiting chest MRI. - Time Spent With Patient Total time spent is greater than 50% in coordination of care (as documented) at patient's floor/unit and/or counseling patient: - Subjective Interval history: Neck pain improved. He is able to move his neck more freely. NO acute overnight events. Reports he continues to have numbness of his right neck, shoulder and arm area. - Constitutional Vitals: Temp Pulse Resp BP Pulse Ox 98.2 F 47 16 150/75 93 07/10/17 12:21 05/08/18 12:21 07/10/17 12:21 07/10/17 12:21 07/10/17 12:21 - Other Additional findings: General: without distress Neck: Mild erythema at the base of the left neck. Mild swelling improved. Heart: Regular rate and rhythm with no murmur Lungs: Clear to auscultation bilaterally Abdomen: Soft nontender, nondistended positive bowel sounds Skin: warm and dry Extremities: Absent pedal edema, Neuro: Decreased sensation to light touch in the right shoulder and right neck region. unchanged Vascular: Pedal and radial pulses 2 out of 4 Internal Medicine: Result - Labs CBC & Chem 7: 07/10/17 01:42 07/10/17 01:42 Labs: Short CBC 07/10/17 Range/Units 01:42 WBC 10.1 (4.3-11.1) K/mcL Hgb 13.2 (12.9-16.9) g/dL Hct 38.3 (37.5-50.1) % Plt Count 184 (140-400) K/mcL Neutrophils # 8.1 (1.6-8.9) K/mcL BMP 07/10/17 01:42 Sodium 139 Potassium 4.1 Chloride 109 H Carbon Dioxide 25 BUN 19 Creatinine 0.85 Glucose 115 H Calcium 8.8 Liver Function 07/10/17 Range/Units 01:42 Total Bilirubin 0.5 (0.3-1.0) mg/dL AST 117 H (13-39) Units/L ALT 184 H (7-52) Units/L Alkaline Phosphatase 35 (34-104) Units/L Albumin 3.8 (3.5-5.7) g/dL Consult Discharge Plan - Plan Referrals: NONE,PCP [Non-Partnered Physician] - <George Stark - Last Filed: 07/10/17 15:43> Date of Encounter: 07/10/17 - Assessment and plan (1) Retropharyngeal abscess Current Visit: Yes Status: Suspected (2) Myositis Current Visit: Yes Status: Acute Qualifiers: Myositis type: other type Myositis location: shoulder Laterality: left Qualified Code(s): M60.812 - Other myositis, left shoulder (3) Alcohol abuse Current Visit: Yes Status: Acute (4) DVT prophylaxis Current Visit: Yes Status: Acute (5) Transaminitis Current Visit: Yes Status: Acute (6) IV drug abuse Current Visit: Yes Status: Chronic (7) Brachial plexitis Current Visit: Yes Status: Acute - Time Spent With Patient Total time spent is greater than 50% in coordination of care (as documented) at patient's floor/unit and/or counseling patient: - Constitutional Vitals: Temp Pulse Resp BP Pulse Ox 98.2 F 47 16 150/75 93 07/10/17 12:21 07/10/17 12:21 07/10/17 12:21 07/10/17 12:21 07/10/17 12:21 Internal Medicine: Result - Labs CBC & Chem 7: 07/10/17 01:42 07/10/17 01:42 Labs: Short CBC 07/10/17 Range/Units 01:42 WBC 10.1 (4.3-11.1) K/mcL Hgb 13.2 (12.9-16.9) g/dL Hct 38.3 (37.5-50.1) % Plt Count 184 (140-400) K/mcL Neutrophils # 8.1 (1.6-8.9) K/mcL BMP 07/10/17 01:42 Sodium 139 Potassium 4.1 Chloride 109 H Carbon Dioxide 25 BUN 19 Creatinine 0.85 Glucose 115 H Calcium 8.8 Liver Function 07/10/17 Range/Units 01:42 Total Bilirubin 0.5 (0.3-1.0) mg/dL AST 117 H (13-39) Units/L ALT 184 H (7-52) Units/L Alkaline Phosphatase 35 (34-104) Units/L Albumin 3.8 (3.5-5.7) g/dL - Attending Attestation I examined this patient and my medical decision-making was reviewed with the Resident Physician on 07/10/17. I agree with the documented findings, disposition and treatment plan as described except to the extent set forth below. Seen and examined at bedside Admitted and being managed for Myositis, brachia plexitis, Elevated CK without renal dysfunction, hx of polysubstance abuse Neurology is following, ENT review from 07/08 noted-no intervention planned. Swelling has improved with hihg dose steroids. Denies new complains, reports significant improvement. Left neck exam with mild tenderness, non-specific soft tissue swelling Repeat Chest MRI (official read) based on recommendation of neurologist is pending. Plan is to continue antibiotics till official report Rest as in the resident physician's documentation
[2017-07-10] MEDS: Thiamine (B-1) 100 MG, Folic Acid 1 MG, MVI, adult with vitamin K 10 ML in 0.9 % Sodi... IVPB SCH (17:39)
[2017-07-10] MEDS: Orphenadrine 100 MG TABLET.ER PO SCH (17:39)
[2017-07-10] MEDS: Ondansetron 4 MG/2 ML VIAL IVP PRN (21:37)
[2017-07-11] MEDS: 0.9 % Sodium Chloride 1,000 ML IVC SCH ×2 (00:17→04:51)
[2017-07-11] MEDS: Clindamycin 600 MG/50 ML 600 MG/50 ML IV.SOLN IVPB SCH ×2 (00:17→09:14)
[2017-07-11] MEDS: *HR* Heparin 5,000 UNIT/ML VIAL SQ SCH (04:52)
[2017-07-11] MEDS: Orphenadrine 100 MG TABLET.ER PO SCH (04:52)
[2017-07-11 07:32] VITALS: BP 148/79
[2017-07-11] MEDS: Ondansetron 4 MG/2 ML VIAL IVP PRN (09:19)
--- NOTE | 2017-07-11 09:34 | Neurology Progress Note ---
Date of Encounter: 07/11/17 Time of Encounter: 07:25 Assessment and Plan (1) Brachial plexitis Current Visit: Yes Status: Acute MRI confirms the involvement of the brachial plexus did not have much focal motor weakness predominantly inflammatory changes noted along with some edema his numbness and paresthesias in the brachial plexus 80 are likely related to it. Already on steroids suggested to continue. May use lidocaine patches Lyrica for symptomatic relief. Continue physical therapy as tolerated Other treatment is as per primary team If remains symptomatic after conservative treatment for some time need to follow -up with neurology as an outpatient It may take several months for complete resolution of plexitis (2) Myositis Current Visit: Yes Status: Acute Qualifiers: Myositis type: other type Myositis location: shoulder Laterality: unspecified laterality Qualified Code(s): M60.819 - Other myositis, unspecified shoulder (3) Retropharyngeal abscess Current Visit: Yes Status: Suspected Subjective Interval history: Patient seems to be stable strength is improving in the right upper extremity still complaining of numbness and paresthesias. He had an MRI of the right brachial plexus Showed redemonstration of findings consistent with myositis of cervical paraspinal muscles, worse on the left than the right. There is edema and enhancement of the right brachial plexus roots and trunks, likely related to surrounding myositis. Objective - Constitutional Vitals: Temp Pulse Resp BP Pulse Ox 98.3 F 62 16 148/79 96 07/11/17 06:34 07/11/17 06:34 07/11/17 06:34 07/11/17 06:34 07/11/17 06:34 - Neurological Exam Motor Examination: Present: other (No changes compared to the) Results - Laboratory Findings CBC and BMP: 07/10/17 01:42 07/10/17 01:42 Abnormal lab findings: Abnormal lab results Immature Plt Fraction 8.2 % (1.1-6.1) H 07/09/17 01:59 ESR 11 mm/hr (0-10) H 07/07/17 17:35 Chloride 109 mEq/L (98-107) H 07/10/17 01:42 Glucose 115 mg/dL (70-105) H 07/10/17 01:42 AST 117 Units/L (13-39) H 07/10/17 01:42 ALT 184 Units/L (7-52) H 07/10/17 01:42 Creatine Kinase 3332 Units/L (30-223) H 07/10/17 01:42 C-Reactive Protein 22 mg/L (Less than 10) H 07/07/17 17:35 Serum Total Protein 5.9 g/dL (6.4-8.9) L 07/10/17 01:42 Globulin 2.1 g/dL (2.4-3.5) L 07/10/17 01:42 Vancomycin Trough 4 mcg/mL (5-10) L 07/09/17 06:58 Consult Discharge Plan - Plan Referrals: NONE,PCP [Non-Partnered Physician] -
--- NOTE | 2017-07-11 11:01 | Discharge Summary ---
<Jose Guadalupe Oreilly - Last Filed: 07/11/17 11:51> Orders not resulted at time of discharge: Pending orders 07/07/17 23:47 Culture,Blood [] Stat Date of Encounter: 07/11/17 Time of Encounter: 10:26 - Discharge Diagnosis (1) Myositis Priority: Primary Status: Acute Qualifiers: Myositis type: other type Myositis location: shoulder Laterality: unspecified laterality Qualified Code(s): M60.819 - Other myositis, unspecified shoulder (2) Retropharyngeal abscess Priority: Secondary Status: Ruled-out (3) Alcohol abuse Priority: Secondary Status: Chronic (4) DVT prophylaxis Priority: Secondary Status: Acute (5) Transaminitis Priority: Secondary Status: Resolved (6) IV drug abuse Priority: Secondary Status: Chronic (7) Brachial plexitis Priority: Secondary Status: Acute Hospital course: Mr. Stokes is a 27 year old male hx of heorin abuse, alcohol abuse presented with cc of weakness. Patient reports being sober for 6 month and then relapsing the night before presentation. He reports drinking 5 shots of liquor and 5 beers. Then he went home and snorted cocaine. He denies ever using IV route. Then he passed out and woke up in the morning feeling his right upper extremity, right face and left occipital head were numb. He had weakness in the upper extremitis. On presentation he was seen to have elevated LFTs and ESR and CRP were mildly elevated. Ct head was normal and CT cervical spine was normal. Soft tissue of Ct neck shows posterior neck myositis with possible developing intramuscular abscess. Cervical spine MRI showed severe mositis involving left trapezius and left sided posterior paraspinal musculature from suboccipital area thorough C6-C7 and trace retropharyngeal abscess extending from C2 through C4-5. Patient was started on vancomycin and clindamycin. His CK was >91426 and was started on IVF muscle relaxers, and IV steroids. ENT was consulted and reported unlikely patient has retropharyngeal abscess and noticed possible spider bite on left neck base. HIV was negative. he was stared on ciwa protocol. Neurology was consulted due to his symptoms of numbness are reported his sensory deficit is likley related to brachial plexitis. Neurology noted patient has decrease in pinprick in right upper extremity in the shoulder area to the elbow front of the C3 line and part of hte neck. Poision control was called due to concern of spider bie but reported likley patient does not need antivenom. Patients neck stiffness, inflammation decreased with IV steroids. His CK level decreased with IVF and LFTs decreased as well. He was taken off of CIWA protocol. Blood cultures were negative and IV antibiotics were deescalated to clindamycin. Chest MRI showed evidence of severe myositits and confirmed that patient likely has retropharengeal effusion not abscess. ENT recommended to complete 10 days of clindamycin and continue steroids for inflammation. At this point the etiology of patient's myositis and brachial plexitis is unknown either likely due to trauma or some type of insect bite. Neurology recommended lyricia for brachial plexitis. PT was consulted and noted minimal limitations and recommended shoulder and cervical ROM exercises and not to begin weight lifting until ROM was restored. Patient is tolerating his diet and has no difficulty in swallowing. He will be discharged on Lyrica, Decadron taper, Norflex, clindamycin. Patient will follow-up with his primary care physician. Patient reports he will start going back to his counseling for his alcohol and heroin abuse. He also will follow-up with neurology outpatient. Discharge discussed with: patient, family - Time Spent with Patient Total time spent providing and/or coordinating discharge services: Greater than 30 minutes - Discharge Medications Prescriptions: Orphenadrine [Norflex] 100 mg PO Q12HR #30 tablet.er Clindamycin HCl 300 mg PO QID #20 capsule Dexamethasone [Decadron] 0.5 mg PO TAPER #15 tablet Pregabalin [Lyrica] 75 mg PO BID 30 Days #60 capsule Home Medications: Clindamycin HCl 300 mg PO QID #20 capsule 07/11/17 [Rx] Dexamethasone [Decadron] 0.5 mg PO TAPER #15 tablet 07/11/17 [Rx] Orphenadrine [Norflex] 100 mg PO Q12HR #30 tablet.er 07/11/17 [Rx] Pregabalin [Lyrica] 75 mg PO BID 30 Days #60 capsule 07/11/17 [Rx] Allergies/Adverse Reactions: 3 Allergy/AdvReac Type Severity Reaction Status Date / Time No Known Allergies Allergy Verified 08/01/16 10:45 Date of admission: 07/07/17 23:43 Primary care physician: Morteza Mello MD Consults: 07/07/17 23:45 Consult to Delivery Nurse [CONS] Routine Reason for SW Consult: alcohol abuse 07/07/17 23:50 Consult to Neurology [CONS] Routine Consulting Provider: [facility] Reason for Consult: myositis. uppoer extremitiy weakness, numbness Call Completed: No 07/09/17 16:01 Consult to Pastoral Services [CONS] Routine Comment: 07/10/17 13:34 Consult to Physical Therapy [CONS] Routine Comment: Evaluate, develop and implement POC Reason for Consult: myositis, upper extremity weakness Does patient have active BEDREST order?: No Is patient medically & hemodynamically stable?: Yes Discharging clinician: Jose Guadalupe Oreilly Anticipated date of discharge: 07/11/17 - Constitutional Vitals: Temp Pulse Resp BP Pulse Ox 98.3 F 62 16 148/79 96 07/11/17 06:34 07/11/17 06:34 07/11/17 06:34 07/11/17 06:34 07/11/17 06:34 - Other Additional findings: General: Pleasant without distress HEENT: Head atraumatic, normocephalic, EOMI, PERRL, neck nontender to palpation , absent lymphadenopathy, Moist Mucous Membranes, absent pharyngeal erythema or discharge or fullness Heart: Regular rate and rhythm with no murmur Lungs: Clear to auscultation bilaterally Abdomen: Soft nontender, nondistended positive bowel sounds Skin: warm and dry, absent rash Extremities: Absent pedal edema, Neuro: Cranial nerves II through XII intact, decreased sensation in the left C3- C4 distribution and right shoulder and neck. UE strength 4 out of 5 and LE strength 5/5, alert oriented 3, Heel to brown intact, finger to nose intact, Gait intact, rhombergs sign negative, b/l plantar reflexes downwards Vascular: Pedal and radial pulses 2 out of 4 - Patient Status Disposition: Home, Self-Care Condition: Fair Functional capacity at discharge: independent ambulation Overall status at discharge: patient is progressing back to baseline - Discharge Instructions Instructions: Clindamycin (By mouth), Orphenadrine (By mouth), Dexamethasone ( By mouth), Pregabalin (By mouth) Follow Up With: Luma Stephens MD [Partnered Physician] - (brachial plexitis) NONE,PCP [Non-Partnered Physician] - (patient has PCP before and would like follow up with him. ) Additional Instructions: Follow-up appointments: If there is not an appointment listed below, please call your physician and schedule a follow-up appointment. If you have congestive heart failure and your symptoms return, make an appointment with your physician. Medication List: Carry an up to date list of medications you are taking at all time. We have given you an updated medication list including any new medications that you have been prescribed. Please provide that list to your primary provider Symptoms: If your condition changes or you experience any of the following symptoms, notify your physician immediately: Unusual or worsening pain, fever, persistent nausea and vomiting, bleeding, increase in swelling (especially in your legs), sudden weight gain, extreme dizziness, chest pain, increased drainage or redness from a wound or incision. Go to the emergency department if you experience a problem with breathing. Weights: If you have a history of swelling or shortness of breath, weigh yourself daily and notify your physician if you have a weight gain of two or more pounds in one day or 5 or more pounds in a week. If you experience any of the warning signs for stroke: Sudden numbness or weakness of the face, arm or leg; especially on one side of the body, sudden confusion, trouble speaking or understanding, sudden trouble seeing in one or both eyes, sudden trouble walking, dizziness, loss of balance or coordination, sudden sever headache with no cause; Call 911 or go to the emergency room. Stroke is a medical emergency. Some risk factors for stroke: Age, cigarette smoking, diabetes, excessive alcohol consumption, family history , high blood pressure, overweight, physical inactivity, prior stroke, heart attack, diagnosis of carotid artery stenosis or other artery disease. If you smoke, STOP: Smoking or tobacco use significantly increases your risk of heart and lung disease. Your chance of disease greatly increases if you continue to smoke. For more information, call the [place] tobacco quit line for smoking cessation QUIT-NOW ( ) - Diet and Activity Activity: as per physical therapy (told to only start lifting weights only when his strength returns. Also start with lower weights. ) Diet: advance to your usual diet <George Stark - Last Filed: 07/11/17 13:17> Orders not resulted at time of discharge: Pending orders 07/07/17 23:47 Culture,Blood [BC] Stat Date of Encounter: 07/11/17 - Discharge Diagnosis (1) Retropharyngeal abscess Status: Ruled-out (2) Myositis Status: Acute Qualifiers: Myositis type: other type Myositis location: shoulder Laterality: unspecified laterality Qualified Code(s): M60.819 - Other myositis, unspecified shoulder (3) Alcohol abuse Status: Chronic (4) DVT prophylaxis Status: Acute (5) Transaminitis Status: Resolved (6) IV drug abuse Status: Chronic (7) Brachial plexitis Status: Acute Hospital course: Mr. Stokes is a 27 year old male Discharge discussed with: nurse - Time Spent with Patient Total time spent providing and/or coordinating discharge services: Date of admission: 07/07/17 23:43 Primary care physician: Morteza Mello MD Consults: 07/07/17 23:45 Consult to Delivery Nurse [CONS] Routine Reason for SW Consult: alcohol abuse 07/07/17 23:50 Consult to Neurology [CONS] Routine Consulting Provider: [facility] Reason for Consult: myositis. uppoer extremitiy weakness, numbness Call Completed: No 07/09/17 16:01 Consult to Pastoral Services [CONS] Routine Comment: 07/10/17 13:34 Consult to Physical Therapy [CONS] Routine Comment: Evaluate, develop and implement POC Reason for Consult: myositis, upper extremity weakness Does patient have active BEDREST order?: No Is patient medically & hemodynamically stable?: Yes - Constitutional Vitals: Temp Pulse Resp BP Pulse Ox 98.3 F 62 16 148/79 96 07/11/17 06:34 07/11/17 06:34 07/11/17 06:34 07/11/17 06:34 07/11/17 06:34 - Attending Attestation I examined this patient and my medical decision-making was reviewed with the Resident Physician on 07/11/17. I agree with the documented findings, disposition and treatment plan as described except to the extent set forth below. Seen and examined at bedside Admitted and being managed for Myositis, brachia plexitis, Elevated CK without renal dysfunction, hx of polysubstance abuse Has been managed with high dose steroids pain control, IVF CK has decreased to <3000 from >67808 on arrival, making urine and renal function is stable Stable to be discharged home on steroids with taper, oral clindamycin, lyrica, lidoderm , follow up with neurology Rest as in the resident physician's documentation
== END 2017-07-11 12:58 | disposition home or self-care (01) | DRG 113 ==
LOC: 3NENU 17:12 → EMEROO 17:12 → SUATTDRO 23:43 → 3NENU 07-08 00:09
PROVIDERS: ADMIT Internal Medicine; ATTEND Internal Medicine